=== PATIENT | female | born 1940 | race Caucasian/White ===

== ENCOUNTER 2018-03-08 21:34 | Inpatient (IN) | payer MEDICARE, OTHER ==
[~2018-03-08] VITALS: Ht 160 cm; Wt 96.6 kg
[2018-03-08 23:31] LABS: BASOPHILS % 0.3 % (0.0-1.0); EOSINOPHILS % 0.3 % (0.0-6.0); HEMATOCRIT 34.2 % (34.2-44.1); HEMOGLOBIN 11.5 g/dL (12.0-16.0); LYMPHOCYTES # (AUTO) 0.6 (1.0-3.2); LYMPHOCYTES % 5.3 % (18.0-39.1); MEAN CORPUSCULAR HEMOGLOBIN 30.7 pg (28-32); MEAN CORPUSCULAR HGB CONC 33.6 g/dL (31-35); MEAN CORPUSCULAR VOLUME 91.2 fL (81-99); MONOCYTES # (AUTO) 0.9 (0.2-0.8); NEUTROPHILS # (AUTO) 9.8 (2.1-6.9); NEUTROPHILS % 85.8 % (38.7-80.0); PLATELET COUNT 207 x10e3/uL (140-360); RED BLOOD COUNT 3.75 x10e6/uL (3.6-5.1); RED CELL DISTRIBUTION WIDTH 13.2 % (11.7-14.4)
[2018-03-08 23:39] LABS: CLARITY,URINE CLOUDY (CLEAR); COLOR,URINE YELLOW (YELLOW)
[2018-03-08 23:40] LABS: BILIRUBIN,URINE NEGATIVE (NEGATIVE); KETONES,URINE NEGATIVE (NEGATIVE); LEUKOCYTE ESTERASE ,URINE 1+ (NEGATIVE); NITRITE,URINE NEGATIVE (NEGATIVE); PROTEIN,URINE DIPSTICK NEGATIVE (NEGATIVE); URINE UROBILINOGEN 0.2 mg/dL (0.2 - 1)
[2018-03-08 23:41] LABS: PREGNANCY TEST, URINE NEGATIVE (NEGATIVE)
[2018-03-08 23:47] LABS: WBC,URINE (MAN) >50 /HPF (0-5)
[2018-03-08 23:48] LABS: BACTERIA,URINE MANY /HPF; EPITHELIAL CELLS,URINE FEW /LPF; MUCUS,URINE MODERATE (RARE)
[2018-03-08 23:51] LABS: ALBUMIN 3.4 g/dL (3.5-5.0); ALBUMIN/GLOBULIN RATIO 0.9 (0.8-2.0); ANION GAP 20.8 mmol/L (8-16); CALCIUM 9.4 mg/dL (8.4-10.2); CREATININE, SERUM 2.76 mg/dL (0.57-1.11); POTASSIUM 3.8 mmol/L (3.5-5.1)
[2018-03-09] VITALS (8 sets, daily range): BP systolic 114–147; BP diastolic 55–85
[2018-03-09] MEDS ORDERED: SODIUM CHLORIDE 0.9% 1000ML 1,000 ML IV SCH
[2018-03-09] MEDS ORDERED: SODIUM CHLORIDE 0.9% 1000ML 1,000 ML ONE (00:15)
[2018-03-09] MEDS ORDERED: DIATRIZOATE MEGL/DIATRIZOA SOD 30 ML BTL PO ONE (00:28)
--- NOTE | 2018-03-09 02:26 | Diagnostic Imaging Report ---
EXAM: CT Abdomen and Pelvis WITHOUT contrast INDICATION: Vomiting, diarrhea, left lower quadrant abdominal pain. ^VOMITING DIARRHEA AND LLQ ABD PAIN ^[id number] ^0155 ^N COMPARISON: None. TECHNIQUE: Abdomen and pelvis were scanned utilizing a multidetector helical scanner from the lung base to the pubic symphysis without administration of IV contrast. Absence of intravenous contrast decreases sensitivity for detection of focal lesions and vascular pathology. Coronal and sagittal reformations were obtained. Routine protocol was performed. IV CONTRAST: None ORAL CONTRAST: Gastrografin COMPLICATIONS: None RADIATION DOSE: Total DLP: 828.9 mGy*cm Estimated effective dose: (DLP x 0.015 x size factor) mSv Dose modulation, iterative reconstruction, and/or weight based adjustment of the mA/kV was utilized to reduce the radiation dose to as low as reasonably achievable. FINDINGS: LINES and TUBES: None. LOWER THORAX: 1.9 x 2 cm noncalcified solid pulmonary nodule in the posterior medial left lower lobe. Three vessel diffuse coronary artery calcifications. HEPATOBILIARY: Multiple hepatic cysts measuring up to 5 cm. No biliary ductal dilation. GALLBLADDER: Absent. SPLEEN: No splenomegaly. PANCREAS: No focal masses or ductal dilatation. ADRENALS: Right adrenal 1.1 cm nodule measures 20 Hounsfield units, indeterminate. Left adrenal hyperplasia. KIDNEYS/URETERS: No hydronephrosis. Multiple renal cysts measuring up to 3.3 cm. Additional scattered lesions measure greater than fluid density, for example 1.3 cm in the left interpolar region measuring 64 Hounsfield units (image 39) and 2.2 cm left inferior pole measuring 41 Hounsfield units (image 52), indeterminate. No stones. GI TRACT: Small hiatal hernia. No abnormal distention, wall thickening, or evidence of bowel obstruction. There are diverticula within the colon without evidence of diverticulitis. There are post surgical changes of appendectomy. PELVIC ORGANS/BLADDER: Bilateral hip prostheses with streak and photon starvation artifacts limit evaluation of the pelvis. Hysterectomy. LYMPH NODES: No lymphadenopathy. VESSELS: There is severe atherosclerotic disease in the aorta and major arterial branches. Fusiform infrarenal abdominal aortic aneurysm approximately 3.2 cm above the bifurcation. Aneurysm measures up to approximately 3.7 cm in diameter and 5.1 cm in length. PERITONEUM / RETROPERITONEUM: No free air or fluid. BONES: Bilateral hip prostheses. Severe facet degenerative changes throughout the lumbar spine. Grade 1 anterolisthesis of L4 on L5. Multilevel degenerative disc disease of the thoracolumbar spine. Multilevel posterior disc osteophyte complexes which narrow the spinal canal in the lower thoracic spine. SOFT TISSUES: Small fat-containing umbilical hernia. Gluteal injection granulomas. IMPRESSION: 1. No acute abnormalities. 2. Left lower lobe 2 cm pulmonary nodule. Consider management per Fleischner Society [address] at 3 months, PET/CT, or tissue sampling. 3. Multiple indeterminate renal lesions which may represent complicated cysts, although solid lesion cannot be excluded. Recommend further evaluation with MRI without and with contrast. 4. Indeterminate right adrenal 1.1 cm nodule which can be evaluated at the time of MRI. 5. Abdominal aortic aneurysm measuring 3.7 cm in diameter. 6. Small hiatal hernia. 7. Colonic diverticulosis. Signed by: DR. Christopher Miranda MD on 03/09/2018 2:23 AM
[2018-03-09] MEDS ORDERED: ACETAMINOPHEN 1000 MG/100 ML 100 ML IV ONE (03:24)
[2018-03-09] MEDS ORDERED: ONDANSETRON HCL INJ 2 MG/ML VIAL IV PRN (03:30)
[2018-03-09] MEDS ORDERED: MORPHINE SULFATE 2 MG/ML SYR IV PRN (03:30)
--- OUTSIDE RECORDS SUMMARY | 2018-03-09 04:15 | XMS REPORT ---
Author Author [facility] Address Unknown Phone Unavailable Care Team Providers Care Pharmacy Informatics Specialist Name Role Phone Evan WHELAN Unavailable Unavailable Problems This patient has no known problems. Allergies, Adverse Reactions, Alerts This patient has no known allergies or adverse reactions. Medications This patient has no known medications. Results Test Description Test Time Test Comments Text Results Atomic Results Result Comments CT ABDOMEN/PELVIS WO 2018-03-09 01:50:00 [facility] [address] [address] Patient Name: PEEWEE MCNAIR MR #: [id number] : 1940 Age/Sex: 78/F Req #: [id number] Adm Physician: Ordered by: JENNA WHELAN MD Report #: [id number] Location: ER Room/Bed: Procedure: [id number] CT/CT ABDOMEN/PELVIS WO Exam Date: 03/09/18 Exam Time: 0155 REPORT STATUS: Signed EXAM: CT Abdomen and Pelvis WITHOUT contrast IND ICATION: Vomiting, diarrhea, left lower quadrant abdominal pain. VOMITING DIARRHEA AND LLQ ABD PAIN [id number] COMPARISON: None. TECHNIQUE: Abdomen and pelvis were scanned utilizing a multidetector helical scanner from the lung base to the pubic symphysis without administration of IV contrast. Absence of intravenous contrast decreases sensitivity for detection of focal lesions and vascular pathology. Coronal and sagittal reformations were obtained. Routine protocol was performed. IV CONTRAST: None ORAL CONTRAST: Gastrografin COMPLICATIONS: None RADIATION DOSE: Total DLP: 828.9 mGy*cm Estimated effective dose: (DLP x 0.015 x size factor) mSv Dose modulation, iterative reconstruction, and/or weight based adjustment of the mA/kV was utilized to reduce the radiation dose to as low as reasonably achievable. FINDINGS: LINES and TUBES: None. LOWER THORAX: 1.9 x 2 cm noncalcified solid pulmonary nodule in the posterior medial left lower lobe. Three vessel diffuse coronary artery calcifications. HEPATOBILIARY: Multiple hepatic cysts measuring up to 5 cm. No biliary ductal dilation. GALLBLADDER: Absent. SPLEEN: No splenomegaly. PANCREAS: No focal masses or ductal dilatation. ADRENALS: Right adrenal 1.1 cm nodule measures 20 Hounsfield units, indeterminate. Left adrenal hyperplasia. KIDNEYS/URETERS: No hydronephrosis. Multiple renal cysts measuring up to 3.3 cm. Additional scattered lesions measure greater than fluid density, for example 1.3 cm in the left interpolar region measuring 64 Hounsfield units (image 39) and 2.2 cm left inferior pole measuring 41 Hounsfield units (image 52), indeterminate. No stones. GI TRACT: Small hiatal hernia. No abnormal distention, wall thickening, or evidence of bowel obstruction. There are diverticula within the colon without evidence of diverticulitis. There are post surgical changes of appendectomy. PELVIC ORGANS/BLADDER: Bilateral hip prostheses with streak and photon starvation artifacts limit evaluation of the pelvis. Hysterectomy. LYMPH NODES: No lymphadenopathy. VESSELS: There is severe atherosclerotic disease in the aorta and major arterial branches. Fusiform infrarenal abdominal aortic aneurysm approximately 3.2 cm above the bifurcation. Aneurysm measures up to approximately 3.7 cm in diameter and 5.1 cm in length. PERITONEUM / RETROPERITONEUM: No free air or fluid. BONES: Bilateral hip prostheses. Severe facet degenerative changes throughout the lumbar spine. Grade 1 anterolisthesis of L4 on L5. Multilevel degenerative disc disease of the thoracolumbar spine. Multilevel posterior disc osteophyte complexes which narrow the spinal canal in the lower thoracic spine. SOFT TISSUES: Small fat-containing umbilical hernia. Gluteal injection granulomas. IMPRESSION: 1. No acute abnormalities. 2. Left lower lobe 2 cm pulmonary nodule. Consider management per Fleischner Society [address] at 3 months, PET/CT, or tissue sampling. 3. Multiple indeterminate renal lesions which may represent complicated cysts, although solid lesion cannot be excluded. Recommend further evaluation with MRI without and with contrast. 4. Indeterminate right adrenal 1.1 cm nodule which can be evaluated at the time of MRI. 5. Abdominal aortic aneurysm measuring 3.7 cm in diameter. 6. Small hiatal hernia. 7. Colonic diverticulosis. Signed by: DR. Christopher Walden MD on 03/09/2018 2:23 AM Dictated By: CHRISTOPHER WALDEN MD 2 Transcribed By: GORDY on 03/09/18222 COPY TO: JENNA WHELAN MD
--- OUTSIDE RECORDS SUMMARY | 2018-03-09 04:15 | XMS REPORT ---
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 Completed 05/21/2016 cephalexin 500 mg capsule Completed 05/21/2016 clopidogrel 75 mg tablet Active Not available Co Q-10 200 mg capsule QD Active Not available Farxiga 10 mg tablet Take 1 tablet every day by oral route. Active Not available fluconazole 150 mg tablet Completed 05/21/2016 FreeStyle Lancets 28 gauge Take 1 each 3 times a week by miscell. route as directed. Active Not available furosemide 20 mg tablet Active Not available Jardiance 10 mg tablet Take 1 tablet every day by oral route. Active Not available lisinopril 2.5 mg tablet Completed 08/14/2016 lisinopril 20 mg-hydrochlorothiazide 12.5 mg tablet Take 1 tablet every day by oral route. Completed 02/29/2016 lisinopril 5 mg tablet Active Not available Longs Adult Low Strength ASA 81 mg tablet,delayed release Take 1 tablet every day by oral route. Active Not available Macrobid 100 mg capsule Take 1 capsule every 12 hours by oral route. Completed 03/08/2016 metformin 1,000 mg tablet Take 1 tablet twice a day by oral route. Active Not available metformin 500 mg tablet Active Not available OneTouch Delica Lancets 33 gauge Active Not available OneTouch Ultra Blue Test Strip Active Not available OneTouch Ultra2 kit Completed 06/04/2017 pravastatin 40 mg tablet Completed 02/29/2016 pravastatin 80 mg tablet Completed 02/29/2016 sulfamethoxazole 800 mg-trimethoprim 160 mg tablet Completed 03/08/2016 Zostavax (PF) 19,400 unit/0.65 mL subcutaneous suspension Completed 04/27/2016 Problems Name Status Onset Date Source Type 2 Diabetes Mellitus without Complication Unknown 12/27/2015 Mixed Hyperlipidemia Active 12/27/2015 Body Mass Index 30+ - Obesity Active 12/27/2015 Tobacco User Active 12/27/2015 Benign Essential Hypertension Active 12/27/2015 Coronary Arteriosclerosis in [place] Artery Active 03/15/2016 Blood in Urine Active 03/15/2016 Type 2 Diabetes Mellitus Active 04/18/2016 Angina Pectoris Active 04/18/2016 Congestive Heart Failure Active 04/18/2016 History of Tobacco Use Active 04/18/2016 Atherosclerosis of Arteries of the Extremities Active 04/27/2016 Morbid Obesity Active 08/14/2016 Chronic Diastolic Heart Failure Active 08/14/2016 Type II Diabetes Mellitus Uncontrolled Active 04/10/2017 Acute Urinary Tract Infection Unknown Procedures Date Name Performed by 03/04/2016 Angioplasty Notes: Bilateral Femoral Artery Stent Placement Information not available Other Information not available Coronary Artery Angio S&i Notes: Stent placed in posterior heart, pt unsure of vessel. Information not available Back Surgery Notes: Lumbar and Thoracic. Unknown procedures. Information not available Hip Replacement Notes: Bilaterally Information not available Partial Hysterectomy Information not available 12/27/2015 Electrocardiogram [facility] [address] [place] [address] ([address]) 03/04/2010 Bone Density Study Information not available Notes: Pituitary Tumor Excised, Acromegaly Lab Results Date Name Specimen Result Interpretation Description Value Range Status Address 02/15/2017 CBC W/ Auto Diff Normal White Blood Cell Count 7.1 thousand/uL 3.8-10.8 thousand/uL [facility] Laboratory: [address] Normal Red Blood Cell Count 4.15 million/uL 3.80-5.10 million/uL [facility] Laboratory: [address] Normal Hemoglobin 12.6 g/dL 11.7-15.5 g/dL [facility] Laboratory: [address] Normal Hematocrit 38.6 % 35.0-45.0 % Final [facility] Laboratory: [address] Normal Mcv 93.0 fL 80.0-100.0 fL Final [facility] Laboratory: [address] Normal Mch 30.4 pg 27.0-33.0 pg Final [facility] Laboratory: [address] Normal Mchc 32.6 g/dL 32.0-36.0 g/dL Final [facility] Laboratory: [address] Normal Rdw 12.6 % 11.0-15.0 % Final [facility] Laboratory: [address] Normal Platelet Count 207 thousand/uL 140-400 thousand/uL Final [facility] Laboratory: [address] Normal Mpv 10.0 fL 7.5-12.5 fL Final [facility] Laboratory: [address] Normal Absolute Neutrophils 4743 cells/uL 5006-5304 cells/uL Final [facility] Laboratory: [address] Normal Absolute Lymphocytes 1576 cells/uL 850-3900 cells/uL Final [facility] Laboratory: [address] Normal Absolute Monocytes 440 cells/uL 200-950 cells/uL Final [facility] Laboratory: [address] [place] Normal Absolute Eosinophils 298 cells/uL 15-500 cells/uL Final [facility] Laboratory: [address] Normal Absolute Basophils 43 cells/uL 0-200 cells/uL Final [facility] Laboratory: [address] Normal Neutrophils 66.8 % Final [facility] Laboratory: [address] Normal Lymphocytes 22.2 % Final [facility] Laboratory: [address] Normal Monocytes 6.2 % Final [facility] Laboratory: [address] [place] Normal Eosinophils 4.2 % Final [facility] Laboratory: [address] [place] Normal Basophils 0.6 % Final [facility] Laboratory: [address]aur 02/15/2017 HbA1C (Hemoglobin a1C), Blood High Hemoglobin a1C 8.5 % of total HGB <5.7 % of total HGB Final [facility] Laboratory: [address] Castañeda [place] [address] [place] EAG (mg/dL) 197 (calc) Final [facility] Laboratory: [address] [place] EAG (mmol/L) 10.9 (calc) Final [facility]: [facility] [facility] 02/15/2017 CMP, Serum or Plasma Alt 37 U/L 0-55 U/L Final [facility] Laboratory: [address] Castañeda [address] Ast 24 U/L 5-34 U/L Final [facility] Laboratory: [address] Castañeda [address] Bun 15.0 mg/dL 9.8-20.1 mg/dL Final [facility] Laboratory: [address] Castañeda [address] Alk Phos 85 unit/L 40-150 unit/L Final [facility] Laboratory: [address] Castañeda [address] High Glucose 256 mg/dL 70-99 mg/dL Final [facility] Laboratory: [address] Castañeda [address] Albumin 3.8 g/dL 3.5-5.0 g/dL Final [facility] Laboratory: [address] Castañeda [address] Creatinine 0.93 mg/dL 0.57-1.11 mg/dL Final [facility] Laboratory: [address] Castañeda [address] Low eGFR Non- 58 mL/min/1.73m2 >60 mL/min/1.73m2 Final [facility] Laboratory: [address] Castañeda [address] Total Bilirubin 0.7 mg/dL 0.2-1.2 mg/dL Final [facility] Laboratory: [address] Castañeda [address] eGFR - >60 mL/min/1.73m2 >60 mL/min/1.73m2 Final [facility] Laboratory: [address] Castañeda [address] Sodium 137 mEq/L 136-145 mEq/L Final [facility] Laboratory: [address] Castañeda [address] Potassium 4.3 mEq/L 3.5-5.1 mEq/L Final [facility] Laboratory: [address] Castañeda [address] Chloride 104 mmol/L 98-107 mmol/L Final [facility] Laboratory: [address] Castañeda [address] Total Protein 6.7 g/dL 6.4-8.3 g/dL Final [facility] Laboratory: [address]el [address] Calcium 9.8 mg/dL 8.4-10.2 mg/dL Final [facility] Laboratory: [address] Co2 26.9 mmol/L 23.0-31.0 mmol/L Final [facility] Laboratory: [address] Anion Gap 6 calc Final [facility] Laboratory: [address] hansel [address] 02/15/2017 Lipid Panel, Serum Low Hdl 34 mg/dL 40-60 mg/dL Final [facility] Laboratory: [address] High Triglyceride 188 mg/dL 0-149 mg/dL Final [facility] Laboratory: [address] VLDL Calc. 38 mg/dL Final [facility] Laboratory: [address] cholesterol/HDL Ratio 4.1 mg/dL Final [facility] Laboratory: [address] h[address]el [address] non-HDL Cholesterol Calc. 104 mg/dL 0-160 mg/dL Final [facility] Laboratory: [address]el [address] Cholesterol 138 mg/dL 0-199 mg/dL Final [facility] Laboratory: [address] LDL Calc. 66 mg/dL 0-130 mg/dL Final [facility] Laboratory: [address] 02/15/2017 TSH, Serum or Plasma Tsh 1.903 uIU/mL 0.350-4.940 uIU/mL Final [facility] Laboratory: [address] 11/15/2016 CMP, Serum or Plasma Alt 32 U/L 0-55 U/L Final [facility] Laboratory: [address] Ast 19 U/L 5-34 U/L Final [facility] Laboratory: [address] Bun 15.1 mg/dL 9.8-20.1 mg/dL Final [facility] Laboratory: [address] Alk Phos 82 unit/L 40-150 unit/L Final [facility] Laboratory: [address] hansel [address] High Glucose 218 mg/dL 70-99 mg/dL Final [facility] Laboratory: [address] Castañeda [facility] Albumin 3.8 g/dL 3.5-5.0 g/dL Final [facility] Laboratory: [address] [place], [place] Creatinine 0.84 mg/dL 0.57-1.11 mg/dL Final [facility] Laboratory: [address] Castañeda [address] eGFR Non- >60 mL/min/1.73m2 >60 mL/min/1.73m2 Final [facility] Laboratory: [address] Castañeda [address] Total Bilirubin 0.7 mg/dL 0.2-1.2 mg/dL Final [facility] Laboratory: [address] Castañeda [address] eGFR - >60 mL/min/1.73m2 >60 mL/min/1.73m2 Final [facility] Laboratory: [address] Krishnamurthy [address] [place] [address] Sodium 139 mEq/L 136-145 mEq/L Final [facility] Laboratory: [address] Castañeda [address] Potassium 4.6 mEq/L 3.5-5.1 mEq/L Final [facility] Laboratory: [address] Castañeda [address] Chloride 105 mmol/L 98-107 mmol/L Final [facility] Laboratory: [address] Castañeda [address] Total Protein 6.8 g/dL 6.4-8.3 g/dL Final [facility] Laboratory: [address] Krishnamurthy [address] [place] [address] Calcium 9.6 mg/dL 8.4-10.2 mg/dL Final [facility] Laboratory: [address] Castañeda [place] [address], [place] Co2 24.9 mmol/L 23.0-31.0 mmol/L Final [facility] Laboratory: [address] Castañeda [address] Anion Gap 9 calc Final [facility] Laboratory: [address] [facility] 11/15/2016 Lipid Panel, Serum Hdl 40 mg/dL 40-60 mg/dL Final [facility] Laboratory: [address] Krishnamurthy [facility], [place] Triglyceride 136 mg/dL 0-149 mg/dL Final [facility] Laboratory: [address] Castañeda [address] VLDL Calc. 27 mg/dL Final [facility] Laboratory: [address] cholesterol/HDL Ratio 4 mg/dL Final [facility] Laboratory: [address] non-HDL Cholesterol Calc. 102 mg/dL 0-160 mg/dL Final [facility] Laboratory: [address] Cholesterol 142 mg/dL 0-199 mg/dL Final [facility] Laboratory: [address] LDL Calc. 75 mg/dL 0-130 mg/dL Final [facility] Laboratory: [address] 11/15/2016 HbA1C (Hemoglobin a1C), Blood High A1C W/eag 7.0 % 1.0-5.7 % Final [facility] Laboratory: [address] Average Blood Glucose 154 mg/dL Final [facility] Laboratory: [address] 08/03/2016 Lipid Panel, Serum Normal Cholesterol, Total 127 mg/dL 125- 200 mg/dL Final [facility] Laboratory: [address] Low HDL Cholesterol 43 mg/dL > or=46 mg/dL Final [facility] Laboratory: [address] Normal Triglycerides 141 mg/dL <150 mg/dL Final [facility] Laboratory: [address] Normal LDL-cholesterol 56 mg/dL (calc) <130 mg/dL (calc) Final [facility] Laboratory: [address] Normal Chol/hdlc Ratio 3.0 (calc) < or=5.0 (calc) Final [facility] Laboratory: [address] Normal Non HDL Cholesterol 84 mg/dL (calc) Final [facility] Laboratory: [address] 08/03/2016 CMP, Serum or Plasma High Glucose 170 mg/dL 65-99 mg/dL Final [facility] Laboratory: [address] Normal Urea Nitrogen (BUN) 13 mg/dL 7-25 mg/dL Final [facility] Laboratory: [address] Normal Creatinine 0.80 mg/dL 0.60-0.93 mg/dL Final [facility] Laboratory: [address] Normal eGFR Non-afr. Estonian 72 mL/min/1.73m2 > or=60 mL/min/1.73m2 Final [facility] Laboratory: [address] Krishnamurthy [address] [place] [address] Normal eGFR 83 mL/min/1.73m2 > or=60 mL/min/1.73m2 Final [facility] Laboratory: [address] [facility] BUN/creatinine Ratio not applicable (calc) 6-22 (calc) Final [facility] Laboratory: [address] [facility] Normal Sodium 139 mmol/L 135-146 mmol/L Final [facility] Laboratory: [address] Krishnamurthy [address] [place] [address] Normal Potassium 4.8 mmol/L 3.5-5.3 mmol/L Final [facility] Laboratory: [address] Castañeda [facility] Normal Chloride 105 mmol/L 98-110 mmol/L Final [facility] Laboratory: [address] Krishnamurthy [address] [place] [address] Normal Carbon Dioxide 24 mmol/L 20-31 mmol/L Final [facility] Laboratory: [address] [facility] Normal Calcium 9.8 mg/dL 8.6-10.4 mg/dL Final [facility] Laboratory: [address] Krishnamurthy [address] [place] [address] Normal Protein, Total 6.5 g/dL 6.1-8.1 g/dL Final [facility] Laboratory: [address] Castañeda [address] Normal Albumin 4.3 g/dL 3.6-5.1 g/dL Final [facility] Laboratory: [address] Krishnamurthy [address] [place] [address] Normal Globulin 2.2 g/dL (calc) 1.9-3.7 g/dL (calc) Final [facility] Laboratory: [address] Castañeda [address] Normal Albumin/globulin Ratio 2.0 (calc) 1.0-2.5 (calc) Final [facility] Laboratory: [address] Castañeda [address] Normal Bilirubin, Total 0.6 mg/dL 0.2-1.2 mg/dL Final [facility] Laboratory: [address] [facility] Normal Alkaline Phosphatase 80 U/L 33-130 U/L Final [facility] Laboratory: [address] [facility] Normal Ast 15 U/L 10-35 U/L Final [facility] Laboratory: [address] [facility] Normal Alt 22 U/L 6-29 U/L Final [facility] Laboratory: [address] Krishnamurthy [address] [place] [address] 08/03/2016 HbA1C (Hemoglobin a1C), Blood High A1C W/eag 7.0 % 1.0-5.7 % Final [facility] Laboratory: [address] [place] [address], [place] Average Blood Glucose 154 mg/dL Final [facility] Laboratory: [address] Krishnamurthy [address] [place] [address] 04/27/2016 Urinalysis Complete, Reflex Culture Normal Color yellow yellow Final [facility] Laboratory: [address] [place] [address], [place] Normal Appearance clear clear Final [facility] Laboratory: [address] [place] [address], [place] Normal Specific Wyatt 1.009 1.001-1.035 Final [facility] Laboratory: [address] Normal Ph 5.5 5.0-8.0 Final [facility] Laboratory: [address] [place] [address], [place] Normal Glucose negative negative Final [facility] Laboratory: [address] Normal Bilirubin negative negative Final [facility] Laboratory: [address] h[address] Normal Ketones negative negative Final [facility] Laboratory: [address] [place] [address], [place] Normal Occult Blood negative negative Final [facility] Laboratory: [address] Normal Protein negative negative Final [facility] Laboratory: [address] ABNORMAL Nitrite positive negative Final [facility] Laboratory: [address] ABNORMAL Leukocyte Esterase 1+ negative Final [facility] Laboratory: [address] Normal Wbc 0-5 /hpf < or=5 /hpf Final [facility] Laboratory: [address] Normal Rbc none seen /hpf < or=2 /hpf Final [facility] Laboratory: [address] Squamous Epithelial Cells 0-5 /hpf < or=5 /hpf Final [facility] Laboratory: [address] ABNORMAL Bacteria few /hpf none seen /hpf Final [facility] Laboratory: [address] Normal Hyaline Cast none seen /lpf none seen /lpf Final [facility] Laboratory: [address] Reflexive Urine Culture culture indicated - results to follow Final [facility] Laboratory: [address]87 [address] Castañeda [address] 04/27/2016 Culture, Urine ABNORMAL Culture, Urine, Routine Final [facility] Laboratory: [address]055 [address] [facility] 04/18/2016 CMP, Serum or Plasma High Glucose 108 mg/dL 65-99 mg/dL Final [facility] Laboratory: [address] Normal Urea Nitrogen (BUN) 21 mg/dL 7-25 mg/dL Final [facility] Laboratory: 55 [address] Normal Creatinine 0.93 mg/dL 0.60-0.93 mg/dL Final [facility] Laboratory: 55 [address] Fwh[address]el [address] Normal eGFR Non-afr. Estonian 60 mL/min/1.73m2 > or=60 mL/min/1.73m2 Final [facility] Laboratory: 55 [address] Normal eGFR 69 mL/min/1.73m2 > or=60 mL/min/1.73m2 Final [facility] Laboratory: [facility] [address] BUN/creatinine Ratio not applicable (calc) 6-22 (calc) Final [facility] Laboratory: [address] Normal Sodium 138 mmol/L 135-146 mmol/L Final [facility] Laboratory: [address] Normal Potassium 4.9 mmol/L 3.5-5.3 mmol/L Final [facility] Laboratory: [address] Normal Chloride 101 mmol/L 98-110 mmol/L Final [facility] Laboratory: 55 [address] Normal Carbon Dioxide 27 mmol/L 20-31 mmol/L Final [facility] Laboratory: [address] Normal Calcium 10.1 mg/dL 8.6-10.4 mg/dL Final [facility] Laboratory: [address] Normal Protein, Total 7.2 g/dL 6.1-8.1 g/dL Final [facility] Laboratory: [address] Normal Albumin 4.3 g/dL 3.6-5.1 g/dL Final [facility] Laboratory: 55 [address] Normal Globulin 2.9 g/dL (calc) 1.9-3.7 g/dL (calc) Final [facility] Laboratory: [address] [place] Normal Albumin/globulin Ratio 1.5 (calc) 1.0-2.5 (calc) Final [facility] Laboratory: 9055 [address] [facility] Normal Bilirubin, Total 0.7 mg/dL 0.2-1.2 mg/dL Final [facility] Laboratory: 9055 [address] [facility] Normal Alkaline Phosphatase 69 U/L 33-130 U/L Final [facility] Laboratory: [address] [facility] Normal Ast 16 U/L 10-35 U/L Final [facility] Laboratory: [address] Krishnamurthy [address] [place] [address] Normal Alt 19 U/L 6-29 U/L Final [facility] Laboratory: [address]055 [address] [facility] 04/18/2016 Lipid Panel, Serum Normal Cholesterol, Total 143 mg/dL 125- 200 mg/dL Final [facility] Laboratory: 9055 [address] [facility] Low HDL Cholesterol 36 mg/dL > or=46 mg/dL Final [facility] Laboratory: [address] [facility] High Triglycerides 154 mg/dL <150 mg/dL Final [facility] Laboratory: [address] Krishnamurthy [address] [place] [address] Normal LDL-cholesterol 76 mg/dL (calc) <130 mg/dL (calc) Final [facility] Laboratory: [address] Krishnamurthy [address] [place] [address] Normal Chol/hdlc Ratio 4.0 (calc) < or=5.0 (calc) Final [facility] Laboratory: [address] [facility] Normal Non HDL Cholesterol 107 mg/dL (calc) Final [facility] Laboratory: 9055 [address] [facility] 04/18/2016 Urinalysis Complete, Reflex Culture Normal Color yellow yellow Final [facility] Laboratory: [address] Castañeda [facility] Normal Appearance clear clear Final [facility] [facility]: [facility] Specific [place] 1.005 1.001-1.035 Final [facility] Laboratory[facility] Ph 5.5 5.0-8.0 Final [facility] Laboratory: [facility] Glucose negative negative Final [facility] Laboratory: 9055 Flakita Castañeda [place] [address] Normal Bilirubin negative negative Final [facility] Laboratory: 9005 Fl[address] Hawk, [place] Normal Ketones negative negative Final [facility] Laboratory: 9050 Fl[address] Hawk, [place] ABNORMAL Occult Blood 2+ negative Final [facility] Laboratory: 9036 Flak[address] Hawk, [place] Normal Protein negative negative Final [facility] Laboratory: 9061 Flakita Krishnamurthy [facility], [place] ABNORMAL Nitrite positive negative Final [facility] Laboratory: 9048 Flakita Krishnamurthy [facility], [place] ABNORMAL Leukocyte Esterase 1+ negative Final [facility] Laboratory: 9033 Flakita Castañeda [place] [address], [place] ABNORMAL Wbc 6-10 /hpf < or=5 /hpf Final [facility] Laboratory: 9040 Flakita Krishnamurthy [facility], [place] ABNORMAL Rbc 3-10 /hpf < or=2 /hpf Final [facility] Laboratory: 9015 Flakita Krishnamurthy [address] [place] [address] Squamous Epithelial Cells 0-5 /hpf < or=5 /hpf Final [facility] Laboratory: 9070 Flakita Castañeda [address] ABNORMAL Bacteria moderate /hpf none seen /hpf Final [facility] Laboratory: 9060 Flakita Krishnamurthy [address] [place] [address] Normal Hyaline Cast none seen /lpf none seen /lpf Final [facility] Laboratory: 9014 Flakita Castañeda [address] Reflexive Urine Culture culture indicated - results to follow Final [facility] Laboratory: 9059 [address] Hawk, [place] 04/18/2016 Culture, Urine ABNORMAL Culture, Urine, Routine Final [facility] Laboratory[facility]2016 Urinalysis Complete, Reflex Culture Normal Color yellow yellow Final [facility] Laboratory: 9079 Flakita Krishnamurthy [address] [place] [address] Normal Appearance clear clear Final [facility] Laboratory: 9042 Flakita Krishnamurthy [facility], [place] Normal Specific Wyatt 1.004 1.001-1.035 Final [facility] Laboratory: 9067 Flakita Castañeda [place] [address], [place] Normal Ph 5.5 5.0-8.0 Final [facility] Laboratory: 9060 [address] Hawk, [place] Normal Glucose negative negative Final [facility] Laboratory: 9000 [address] Hawk, [place] Normal Bilirubin negative negative Final [facility] Laboratory: 9056 Flakita Castañeda [address] Normal Ketones negative negative Final [facility] Laboratory: 9054 Flakita Castañeda [place] [address], [place] Normal Occult Blood negative negative Final [facility] Laboratory: 9088 Flakita Castañeda [place] [address], [place] Normal Protein negative negative Final [facility] Laboratory: 9050 Flakita Castañeda [place] [address], [place] Normal Nitrite negative negative Final [facility] Laboratory: 9084 Flakita Castañeda [place] [address], [place] Normal Leukocyte Esterase negative negative Final [facility] Laboratory: 9023 Flakita Castañeda [place] [address], [place] Normal Wbc none seen /hpf < or=5 /hpf Final [facility] Laboratory: 9093 Flakita hansel [address] Normal Rbc none seen /hpf < or=2 /hpf Final [facility] Laboratory: 9069 Flakita hansel [place] [address], [place] Squamous Epithelial Cells 0-5 /hpf < or=5 /hpf Final [facility] Laboratory: 90 Flakita hansel [address] Normal Bacteria none seen /hpf none seen /hpf Final [facility] Laboratory: 9016 Flakita Castañeda [address] Normal Hyaline Cast none seen /lpf none seen /lpf Final [facility] Laboratory: 9099 Flakita hansel [address] Reflexive Urine Culture no culture indicated Final [facility] Laboratory: 9037 Flakita Castañeda [address] 03/15/2016 Culture, Urine ABNORMAL Culture, Urine, Routine Final [facility] Laboratory: 9087 Flakita Castañeda [address] 03/01/2016 Urinalysis Complete, Reflex Culture Urine Normal Color dark yellow yellow Final [facility] Laboratory: 9072 Flakita Maddy [address] Urine ABNORMAL Appearance cloudy clear Final [facility] Laboratory: 90 Flakita Castañeda [address] Urine Normal Specific [place] 1.009 1.001-1.035 Final [facility] Laboratory: 9050 Flakita Maddy [address] Urine Normal Ph 5.5 5.0-8.0 Final [facility] Laboratory: 9038 Flakita Castañeda [place] [address], [place] Urine Normal Glucose negative negative Final [facility] Laboratory: 9088 Flakita hansel [address] Urine Normal Bilirubin negative negative Final [facility] Laboratory: 9069 Flakita Maddy [place] [address], [place] Urine Normal Ketones negative negative Final [facility] Laboratory: 9079 Flakita Maddy [place] [address], [place] Urine ABNORMAL Occult Blood trace negative Final [facility] Laboratory: 9053 Flakita Castañeda [place] [address], [place] Urine Normal Protein negative negative Final [facility] Laboratory: 9013 Flakita hansel [place] [address], [place] Urine ABNORMAL Nitrite positive negative Final [facility] Laboratory: 9012 Flakita Krishnamurthy [address] [place] [address] Urine ABNORMAL Leukocyte Esterase 3+ negative Final [facility] Laboratory: 9011 Flakita Krishnamurthy [address] [place] [address] Urine ABNORMAL Wbc 40-60 /hpf < or=5 /hpf Final [facility] Laboratory: 9097 Flakita Krishnamurthy [address] [place] [address] Urine Normal Rbc 0-2 /hpf < or=2 /hpf Final [facility] Laboratory: 9012 Flakita Castañeda [address] Urine Squamous Epithelial Cells 0-5 /hpf < or=5 /hpf Final [facility] Laboratory: 9098 Flakita Castañeda [address] Urine ABNORMAL Bacteria many /hpf none seen /hpf Final [facility] Laboratory: 9089 Flakita hansel [address] Urine Normal Hyaline Cast none seen /lpf none seen /lpf Final [facility] Laboratory: 9013 Flakita Castañeda [address] Urine Reflexive Urine Culture culture indicated - results to follow Final [facility] Laboratory: 9003 Flakita Castañeda [address] 03/01/2016 Culture, Urine ABNORMAL Culture, Urine, Routine Final [facility] Laboratory: 9099 Flakita Krishnamurthy [address] [place] [address] 02/29/2016 Urinalysis Complete, Reflex Culture Normal Color yellow yellow Final [facility] Laboratory: 9006 Flakita Castañeda [address] ABNORMAL Appearance cloudy clear Final [facility] Laboratory: 9078 Flakita Castañeda [address] Normal Specific [place] 1.004 1.001-1.035 Final [facility] Laboratory: 9069 Flakita Krishnamurthy [address] [place] [address] Normal Ph 6.0 5.0-8.0 Final [facility] Laboratory: 9033 Flakita Castañeda [address] Normal Glucose negative negative Final [facility] Laboratory: 9079 Flakita Castañeda [address] Normal Bilirubin negative negative Final [facility] Laboratory: 9065 Flakita Castañeda [address] Normal Ketones negative negative Final [facility] Laboratory: 9081 Flakita Krishnamurthy [address] [place] [address] ABNORMAL Occult Blood 2+ negative Final [facility] Laboratory: 9086 Flakita Castañeda [place] [address], [place] Normal Protein negative negative Final [facility] Laboratory: 90 Flakita Castañeda [place] [address], [place] Normal Nitrite negative negative Final [facility] Laboratory: 9006 Flakita Castañeda [place] [address], [place] ABNORMAL Leukocyte Esterase 3+ negative Final [facility] Laboratory: 9014 Flakita Castañeda [address] ABNORMAL Wbc 10-20 /hpf < or=5 /hpf Final [facility] Laboratory: 9098 Flakita hansel [address] Normal Rbc 0-2 /hpf < or=2 /hpf Final [facility] Laboratory: 9055 Flakita hansel [address] Squamous Epithelial Cells 0-5 /hpf < or=5 /hpf Final [facility] Laboratory: 90 Flakita hansel [address] ABNORMAL Bacteria few /hpf none seen /hpf Final [facility] Laboratory: [address] Normal Hyaline Cast none seen /lpf none seen /lpf Final [facility] Laboratory: [facility] Flakita hansel [address] Reflexive Urine Culture culture indicated - results to follow Final [facility] Laboratory: 9068 Flakita hansel [address] 02/29/2016 Culture, Urine ABNORMAL Culture, Urine, Routine Final [facility] Laboratory: 22 Flakita hansel [address] 12/27/2015 CMP, Serum or Plasma High Glucose 136 mg/dL 65-99 mg/dL Final [facility] Laboratory: 9097 Flakita hansel [address] Normal Urea Nitrogen (BUN) 15 mg/dL 7-25 mg/dL Final [facility] Laboratory: [facility] Flakita hansel [address] Normal Creatinine 0.86 mg/dL 0.60-0.93 mg/dL Final [facility] Laboratory: 90 Flakita hansel [address] Normal eGFR Non-afr. Estonian 66 mL/min/1.73m2 > or=60 mL/min/1.73m2 Final [facility] Laboratory: [facility] Flakita hansel [address] Normal eGFR 77 mL/min/1.73m2 > or=60 mL/min/1.73m2 Final [facility] Laboratory: 90 Flakita Fwhansel [address] BUN/creatinine Ratio not applicable (calc) 6-22 (calc) Final [facility] Laboratory: 9055 Flakita hansel [address] Normal Sodium 141 mmol/L 135-146 mmol/L Final [facility] Laboratory: 55 Flakita hansel [address] Normal Potassium 4.4 mmol/L 3.5-5.3 mmol/L Final [facility] Laboratory: 90 Flakita Fwhansel [address] Normal Chloride 105 mmol/L 98-110 mmol/L Final [facility] Laboratory: 9055 Flakita Castañeda [address] Normal Carbon Dioxide 27 mmol/L 20-31 mmol/L Final [facility] Laboratory: 9055 Flakita hansel [address] Normal Calcium 10.0 mg/dL 8.6-10.4 mg/dL Final [facility] Laboratory: 9055 Flakita hansel [address] Normal Protein, Total 7.3 g/dL 6.1-8.1 g/dL Final [facility] Laboratory: 9055 Flakita hansel [address] Normal Albumin 4.3 g/dL 3.6-5.1 g/dL Final [facility] Laboratory: 9055 Flakita hansel [address] Normal Globulin 3.0 g/dL (calc) 1.9-3.7 g/dL (calc) Final [facility] Laboratory: 9055 Flakita hansel [address] Normal Albumin/globulin Ratio 1.4 (calc) 1.0-2.5 (calc) Final [facility] Laboratory: 9055 Flakita hansel [address] Normal Bilirubin, Total 0.6 mg/dL 0.2-1.2 mg/dL Final [facility] Laboratory: 9055 Flakita hansel [address] Normal Alkaline Phosphatase 79 U/L 33-130 U/L Final [facility] Laboratory: 9055 Flakita hansel [address] Normal Ast 15 U/L 10-35 U/L Final [facility] Laboratory: 9055 Flakita hansel [address] Normal Alt 16 U/L 6-29 U/L Final [facility] Laboratory: 9055 Flakita hansel [address] 12/27/2015 Lipid Panel, Serum Normal Cholesterol, Total 200 mg/dL 125- 200 mg/dL Final [facility] Laboratory: 9055 Flakita hansel [address] Low HDL Cholesterol 41 mg/dL > or=46 mg/dL Final [facility] Laboratory: [address] Normal Triglycerides 147 mg/dL <150 mg/dL Final [facility] Laboratory: 9055 Flakita hansel [address] High LDL-cholesterol 130 mg/dL (calc) <130 mg/dL (calc) Final [facility] Laboratory: 9055 Flakita hansel [address] Normal Chol/hdlc Ratio 4.9 (calc) < or=5.0 (calc) Final [facility] Laboratory: 9055 Carter Kaur Normal Non HDL Cholesterol 159 mg/dL (calc) Final [facility] Laboratory: 9055 Carter Kaur 12/27/2015 CBC W/ Auto Diff Normal White Blood Cell Count 8.9 thousand/uL 3.8-10.8 thousand/uL Final [facility] Laboratory: 9069 Flakita Hawk [place] Normal Red Blood Cell Count 4.72 million/uL 3.80-5.10 million/uL Final [facility] Laboratory: 9055 Flakita Hawk [place] Normal Hemoglobin 14.8 g/dL 11.7-15.5 g/dL Final [facility] Laboratory: 9055 Flakita Hawk [place] High Hematocrit 45.5 % 35.0-45.0 % Final [facility] Laboratory: 9055 Flak[address] Hawk [place] Normal Mcv 96.4 fL 80.0-100.0 fL Final [facility] Laboratory: 9052 Flakita Hawk [place] Normal Mch 31.4 pg 27.0-33.0 pg Final [facility] Laboratory: 9027 Flakita Hawk [place] Normal Mchc 32.5 g/dL 32.0-36.0 g/dL Final [facility] Laboratory: 9055 Flakita Hawk [place] Normal Rdw 13.9 % 11.0-15.0 % Final [facility] Laboratory: 9084 Flakita Hawk [place] Normal Platelet Count 208 thousand/uL 140-400 thousand/uL Final [facility] Laboratory: 9010 Flakita Hawk [place] Normal Mpv 8.7 fL 7.5-11.5 fL Final [facility] Laboratory: 9059 Flakita Hawk [place] Normal Absolute Neutrophils 5910 cells/uL 4135-8211 cells/uL Final [facility] Laboratory: 9055 Flakita Hawk [place] Normal Absolute Lymphocytes 2278 cells/uL 850-3900 cells/uL Final [facility] Laboratory: 9021 Flakita Hawk [place] Normal Absolute Monocytes 374 cells/uL 200-950 cells/uL Final [facility] Laboratory: 9015 Flakita Hawk [place] Normal Absolute Eosinophils 294 cells/uL 15-500 cells/uL Final [facility] Laboratory: 9001 Flakita Hawk [place] Normal Absolute Basophils 45 cells/uL 0-200 cells/uL Final [facility] Laboratory: [address] Normal Neutrophils 66.4 % Final [facility] Laboratory: [address] Normal Lymphocytes 25.6 % Final [facility] Laboratory: [address] Normal Monocytes 4.2 % Final [facility] Laboratory: [address] Normal Eosinophils 3.3 % Final [facility] Laboratory: [address] Normal Basophils 0.5 % Final [facility] Laboratory: [address] 12/27/2015 Hepatitis B Surface Ab, Quantitative, Serum Low Hepatitis B Surface Ab Immunity, Qn <5 mIU/mL > or=10 mIU/mL Final [facility] Laboratory: [address] 12/27/2015 HbA1C (Hemoglobin a1C), Blood High Hemoglobin a1C 6.2 % of total HGB <5.7 % of total HGB Final [facility] Laboratory: [address] EAG (mg/dL) 131 (calc) Final [facility] Laboratory: [address] EAG (mmol/L) 7.3 (calc) Final [facility] Laboratory: [address] 01/04/2015 Lipid Panel, Serum No observation recorded. [facility] [address] [facility] 07/07/2014 Lipid Panel, Serum No observation recorded. [facility] [facility] [place] Urinalysis, Dipstick Color Color light yellow [facility]: [address], [place] Color Appearance clear [facility]: [address], [place] Color Glucose negative [facility]: [address], [place] Color Bilirubin negative [facility]: [address], [place] Color Ketones negative [facility]: [address], [place] Color Specific [place] 1.025 [facility]: [address], [place] Color Blood small [facility]: [address], [place] Color PH 5.5 [facility]: [address], [place] Color Protein negative [facility]: [address], [place] Color Urobilinogen 0.2 [facility]: [address], [place] Color Nitrites negative [facility]: [address], [place] Color Leukocytes negative [facility]: [address], [place] Urinalysis, Dipstick Urine Color Color light yellow [facility]: [address], [place] Urine Color Appearance clear [facility]: [address], [place] Urine Color Glucose negative [facility]: [address], [place] Urine Color Bilirubin negative [facility]: [address], [place] Urine Color Ketones negative [facility]: [address], [place] Urine Color Specific [place] 1.015 [facility]: [address], [place] Urine Color Blood trace [facility]: [address], [place] Urine Color PH 5.5 [facility]: [address], [place] Urine Color Protein negative [facility]: [address], [place] Urine Color Urobilinogen 0.2 [facility]: [address], [place] Urine Color Nitrites positive [facility]: [address], [place] Urine Color Leukocytes trace [facility]: [address], [place] Urinalysis, Dipstick Color Color light yellow [facility]: [address], [place] Color Appearance clear [facility]: [address], [place] Color Glucose negative [facility]: [address], [place] Color Bilirubin negative [facility]: [address], [place] Color Ketones negative [facility]: [address], [place] Color Specific [place] 1.010 [facility]: [address], [place] Color Blood moderate [facility]: [address], [place] Color PH 5.5 [facility]: [address], [place] Color Protein negative [facility]: [address], [place] Color Urobilinogen 0.2 [facility]: [address], [place] Color Nitrites positive [facility]: [address], [place] Color Leukocytes trace [facility]: [address], [place] Urinalysis, Dipstick Color Glucose negative [facility]: [address], [place] Color Bilirubin negative [facility]: [address], [place] Color Ketones negative [facility] [address], [place] Color Specific [place] 1.005 [facility]: [address], [place] Color Blood trace [facility]: [address], [place] Color PH 5.5 [facility]: [address], [place] Color Protein negative [facility]: [address], [place] Color Urobilinogen 0.2 [facility]: [address], [place] Color Nitrites negative [facility]: [address], [place] Color Leukocytes negative [facility]: [address], [place] Urinalysis, Dipstick Urine Color Color yellow [facility]: [address], [place] Urine Color Appearance clear [facility]: [address], [place] Urine Color Glucose negative [facility]: [address], [place] Urine Color Bilirubin negative [facility]: [address], [place] Urine Color Ketones negative [facility]: [address], [place] Urine Color Specific [place] 1.030 [facility]: [address], [place] Urine Color Blood small [facility]: [address], [place] Urine Color PH 6.0 [facility]: [address], [place] Urine Color Protein negative [facility]: [address], [place] Urine Color Urobilinogen 1 [facility]: [address], [place] Urine Color Nitrites positive [facility]: [address], [place] Urine Color Leukocytes large [facility]: [address], [place] Urinalysis, Dipstick Urine Color Glucose negative [facility]: [address], [place] Urine Color Bilirubin negative [facility]: [address], [place] Urine Color Ketones negative [facility]: [address], [place] Urine Color Specific [place] 1.015 [facility]: [address], [place] Urine Color Blood trace [facility]: [address], [place] Urine Color PH 5.5 [facility]: [address], [place] Urine Color Protein negative [facility]: [address], [place] Urine Color Urobilinogen 1 [facility]: [address], [place] Urine Color Nitrites positive [facility]: [address], [place] Urine Color Leukocytes large [facility]: [address], [place] Urinalysis, Dipstick Color Glucose negative [facility]: [address], [place] Color Bilirubin negative [facility]: [address], [place] Color Ketones negative [facility]: [address], [place] Color Specific [place] 1.015 [facility]: [address], [place] Color Blood small [facility]: [address], [place] Color PH 6.5 [facility]: [address], [place] Color Protein negative [facility]: [address], [place] Color Urobilinogen 0.2 [facility]: [address], [place] Color Nitrites negative [facility]: [address], [place] Color Leukocytes large [facility] [address], [place] Electrocardiogram Rate & Rhythm 70 [facility]: [address] [facility] DC Interval 188 [facility]: [facility] 92 [facility]: [address] [facility] QT Interval 406 [facility]: [facility] Albumin:creatinine Ratio, Urine Type Urine Microlalbumin 10 mg/L [facility]: [address] [facility], [place] Type Urine Creatinine 10 mg/dL [facility]: [address] [facility] Type A:C Ratio 30-300 mg/g (Abnormal) [facility]: [address] [facility] Glucose, Fingerstick, Blood Blood Glucose: mg/dl 144 [facility]: [address] [facility] Past Encounters 06/04/2017 Adult Health Examination; Type 2 Diabetes Mellitus; Mixed Hyperlipidemia; Advance Directive Discussed with Patient; Benign Essential Hypertension; Depression Screening; Body Mass Index 30+ - Obesity Breonna Brown MD: [address] [place] [phone], Ph. 04/15/2017 Type 2 Diabetes Mellitus without Complication; Congestive Heart Failure [facility]: [address], [address], [place] [address], Ph. 04/09/2017 Type II Diabetes Mellitus Uncontrolled; Benign Essential Hypertension; Body Mass Index 30+ - Obesity; Mixed Hyperlipidemia; Chronic Diastolic Heart Failure; Coronary Arteriosclerosis in [place]tery; History of Tobacco Use; Morbid Obesity; Adult Health Examination; Atherosclerosis of Arteries of the Extremities; Type 2 Diabetes Mellitus Breonna Brown MD: [address] [place] [phone], Ph. 03/12/2017 Body Mass Index 30+ - Obesity; Benign Essential Hypertension; Mixed Hyperlipidemia; Type 2 Diabetes Mellitus without Complication; At Risk for Falls; Depression Screening; Chronic Diastolic Heart Failure; Coronary Arteriosclerosis in [place]tery; History of Tobacco Use; Morbid Obesity; Adult Health Examination; Influenza Vaccination; Atherosclerosis of Arteries of the Extremities; Type II Diabetes Mellitus Uncontrolled Breonna Brown MD: [address] [place] [phone], Ph. 02/15/2017 Requires Course of Hepatitis B Vaccination; Mixed Hyperlipidemia; Type 2 Diabetes Mellitus without Complication; Benign Essential Hypertension Breonna Brown MD: [address] [place] [phone], Ph. 11/27/2016 Type 2 Diabetes Mellitus without Complication; Body Mass Index 30+ - Obesity; Benign Essential Hypertension; Chronic Diastolic Heart Failure; Mixed Hyperlipidemia; Coronary Arteriosclerosis in [place]tery; History of Tobacco Use; Morbid Obesity; Adult Health Examination; Influenza Vaccination Breonna Brown MD: [address] [place] [phone], Ph. 11/15/2016 Type 2 Diabetes Mellitus without Complication; Mixed Hyperlipidemia Breonna Brown MD: [address] [place] [phone], Ph. 09/13/2016 Requires Course of Hepatitis B Vaccination Jacklyn Casanova MD: [address] [place] [phone], Ph. 08/14/2016 Type 2 Diabetes Mellitus without Complication; Benign Essential Hypertension; Chronic Diastolic Heart Failure; Mixed Hyperlipidemia; Coronary Arteriosclerosis in [place]; History of Tobacco Use; Morbid Obesity; Adult Health Examination; Requires Course of Hepatitis B Vaccination Jacklyn Casanova MD: [address] [place] [phone], Ph. 08/03/2016 Mixed Hyperlipidemia; Type 2 Diabetes Mellitus without Complication Jacklyn Casanvoa MD: [address] [place] [phone], Ph. 05/21/2016 Blood in Urine; History of Tobacco Use; Mixed Hyperlipidemia; Type 2 Diabetes Mellitus without Complication; Body Mass Index 30+ - Obesity; Adult Health Examination Jacklyn Casanova MD: [address] [place] [phone], Ph. 05/03/2016 Blood in Urine Jacklyn Casanova MD: [address] [place] [phone], Ph. 04/27/2016 Blood in Urine; Atherosclerosis of Arteries of the Extremities; History of Tobacco Use; Mixed Hyperlipidemia; Type 2 Diabetes Mellitus; Body Mass Index 30+ - Obesity; Adult Health Examination Jacklyn Casanova MD: [address] [place] [phone], Ph. 04/18/2016 Acute Urinary Tract Infection; Congestive Heart Failure; Coronary Arteriosclerosis in [place]; Angina Pectoris; Type 2 Diabetes Mellitus; History of Tobacco Use; Mixed Hyperlipidemia; Blood in Urine; Body Mass Index 30+ - Obesity; Adult Health Examination Jacklyn Casanova MD: [address] [place] [phone], Ph. 03/22/2016 Blood in Urine; Coronary Arteriosclerosis in [place]; Tobacco User; Mixed Hyperlipidemia; Type 2 Diabetes Mellitus without Complication; Body Mass Index 30+ - Obesity; Adult Health Examination Jacklyn Casanova MD: [address] [place] [phone], Ph. 03/15/2016 Blood in Urine; Coronary Arteriosclerosis in [place]; Tobacco User; Mixed Hyperlipidemia; Type 2 Diabetes Mellitus without Complication; Body Mass Index 30+ - Obesity; Adult Health Examination Jacklyn Casanova MD: [address] [place] [phone], Ph. 03/08/2016 Acute Urinary Tract Infection; Blood in Urine; Coronary Arteriosclerosis in [place]; Tobacco User; Mixed Hyperlipidemia; Adult Health Examination; Type 2 Diabetes Mellitus without Complication Jacklyn Casanova MD: [address] [place] [phone], Ph. 02/29/2016 Dysuria; Coronary Arteriosclerosis in [place]; Type 2 Diabetes Mellitus without Complication; Tobacco User; Mixed Hyperlipidemia; Adult Health Examination Jacklyn Casanova MD: [address] [place] [phone], Ph. 01/17/2016 Type 2 Diabetes Mellitus without Complication; Mixed Hyperlipidemia; Benign Essential Hypertension; Tobacco User; Body Mass Index 30+ - Obesity; Adult Health Examination Jacklyn Casanova MD: [address] [place] [phone], Ph. 12/27/2015 Type 2 Diabetes Mellitus without Complication; Mixed Hyperlipidemia; Benign Essential Hypertension; Body Mass Index 30+ - Obesity; Adult Health Examination; Tobacco User; Influenza Vaccination; Carotid Bruit; Contusion Jacklyn Casanova MD: [address] [place] [phone], Ph. Social History Smoking Status Former Smoker Vaccine List Vaccine Type Hep B, adult 08/14/2016 09/13/2016 02/15/20171 mL influenza, high dose seasonal 12/27/20150.5 mL influenza, unspecified formulation 01/04/2015 Notes: decline's all vaccine's-06/04/2017-staci Plan of Care Patient Instructions Screening Recommendations 1. Vaccines Pneumococcal: discussed today and information sent with patient in their [facility] health folder Influenza: discussed today and information sent with patient in their [facility] health folder Shingles: discussed today and information sent with patient in their [facility] health folder Tetanus: discussed today and information sent with patient in their [facility] health folder 2. Mammography Screening: discussed today and information sent with patient in their [facility] health folder 3. Colorectal cancer Screening Colonoscopy: discussed today and information sent with patient in their [facility] health folder Fecal Occult Blood: discussed today and information sent with patient in their [facility] health folder 4. Bone Mass Measurement: discussed today 5. Pap test / Pelvic Exam Screening: discussed today 6. Eye Exam Screening: discussed today 7. Cholesterol Screening: discussed today 8. Diabetes Screening: discussed today It was good to see you in the office today for your Medicare Annual Wellness Visit. You have been provided some information on healthy nutrition, including a diet rich in fruits and vegetables, minimizing simple carbohydrates, salt, and saturated fats. I want to encourage regular cardiovascular exercise such as walking at least 30 minutes daily, 5 times per week. Please remember to schedule any preventive health measures that we talked about today. You have also been provided education on fall prevention and community- based lifestyle interventions to help reduce health risks and promote healthy living in your [facility] folder. DIABETES PROBLEM The patient has a diagnosis of diabetes. GOAL The patients condition will be managed in the outpatient setting. INTERVENTIONS Educate the patient that a Hemoglobin A1C is an average of their blood glucose levels over the past 3 months, and that it is important to have this lab draw every 3-6 months depending on the results of the test. Patient will need to have a Hemoglobin A1C <8. Explain to the patient risk factors of long-term complications of uncontrolled diabetes, which include: nerve damage to extremities, amputations, skin infections, kidney and heart dysfunction, dementia, cataracts, and pneumonia. Educate the patient on importance of annual flu and pneumonia vaccinations. Educate the patient on current medications and possible side effects. . Educate patient and caregiver on the importance of eating throughout the day 4- 6 small frequent healthy meals to include foods such as fish, chicken, turkey, complex carbs-legumes, whole grains, brown rice to stabilize and balance blood sugars to avoid drop or rise in blood sugar. Educate patient and caregiver to limit/avoid sugars, starches, simple carbohydrates, and organ meats. . Encourage patient to creat a plate of 50% non starchy vegetables such as green leafy vegetables, carrots, cabbage, 25% proteins such as beans, chicken, and 25% of grains or starchy foods such as brown rice, corn. Reminders Provider Appointments None recorded. Lab None recorded. Referral None recorded. Procedures None recorded. Surgeries None recorded. Imaging None recorded. Vitals 06/04/2017 08:45AM Est Patient Height Weight BMI Blood Pressure 5 ft 3 in 206 lbs 36.5 kg/m2 138/66 mm[Hg] 04/09/2017 09:30AM Est Patient Height Weight BMI Blood Pressure 5 ft 3 in 205 lbs 36.3 kg/m2 132/70 mm[Hg] 03/12/2017 10:15AM Est Patient Height Weight BMI Blood Pressure 5 ft 3 in 207 lbs 36.7 kg/m2 132/64 mm[Hg] 11/27/2016 09:30AM Est Patient Height Weight BMI Blood Pressure 5 ft 3 in 204 lbs 36.1 kg/m2 112/68 mm[Hg] 08/14/2016 08:00AM Est Patient Height Weight BMI Blood Pressure 5 ft 3 in 206 lbs 36.5 kg/m2 (1) 170/72 mm[Hg] (2) 140/70 mm[Hg] 05/21/2016 11:30AM Est Patient Height Weight Blood Pressure 5 ft 3 in 137/49 mm[Hg] 04/27/2016 08:15AM Est Patient Height Weight BMI Blood Pressure 5 ft 3 in 199 lbs 35.3 kg/m2 148/66 mm[Hg] 04/18/2016 11:30AM Work In Same Day Height Weight BMI Blood Pressure 5 ft 3 in 194 lbs 34.4 kg/m2 130/65 mm[Hg] 03/22/2016 08:15AM Est Patient Height Weight BMI Blood Pressure 5 ft 3 in 185 lbs 32.8 kg/m2 124/69 mm[Hg] 03/15/2016 07:30AM Est Patient Height Weight BMI Blood Pressure 5 ft 3 in 188 lbs 33.3 kg/m2 126/55 mm[Hg] 03/08/2016 07:00AM Est Patient Height Weight BMI Blood Pressure 5 ft 3 in 193 lbs 34.2 kg/m2 110/53 mm[Hg] 02/29/2016 09:15AM Est Patient Height Weight Blood Pressure 5 ft 3 in 138/68 mm[Hg] 01/17/2016 09:15AM Est Patient Height Weight BMI Blood Pressure 5 ft 3 in 192 lbs 34 kg/m2 113/68 mm[Hg] 12/27/2015 08:30AM INSURANCE PLAN SPECIALIST/EST CPX Height Weight BMI Blood Pressure 5 ft 3 in 195 lbs 34.5 kg/m2 (1) 158/81 mm[Hg] (2) 140/75 mm[Hg]
[2018-03-09] MEDS ORDERED: ACETAMINOPHEN 1000 MG/100 ML IV STA (04:21)
--- NOTE | 2018-03-09 04:45 | NUR ---
IV TYLENOL GIVEN AT THIS TIME.
[2018-03-09] MEDS: SODIUM CHLORIDE 0.9% 1000ML 1,000 ML IV SCH ×2 (06:08→11:55)
--- NOTE | 2018-03-09 06:08 | NUR ---
patient is a new admit that arrived via stretcher. patient is awake and talking. patient has been helped into the bed. bed is in the lowest position and call arriola is within reach. will continue to monitor patient.
[2018-03-09] MEDS ORDERED: CEFTRIAXONE SOD 1 GM/NS 50 ML 50 ML IV SCH (06:30)
[2018-03-09] MEDS ORDERED: FUROSEMIDE40 MG PO (06:31)
[2018-03-09] MEDS ORDERED: METFORMIN HCL500 MG PO (06:31)
[2018-03-09] MEDS ORDERED: ATORVASTATIN CA20 MG PO (06:31)
[2018-03-09] MEDS ORDERED: GLIPIZIDE5 MG PO (06:31)
[2018-03-09] MEDS ORDERED: ASPIRIN81 MG PO (06:31)
[2018-03-09] MEDS: METRONIDAZOLE 500MG/NS 100ML IV SCH ×4 (06:32→22:43)
--- NOTE | 2018-03-09 07:47 | NUR ---
Received patient and alert and responsive, has fever and chills and on IV fluids at this time, call to Dr. Fulton to report and will monitor.
--- NOTE | 2018-03-09 08:28 | NUR ---
Second call to Dr. Fulton for call back and further orders
--- NOTE | 2018-03-09 08:40 | NUR ---
Call back from Dr. Merlos and orders in place for Abx Stat and APAP for fever and blood cultures and urine cultures ordered and CXR.
[2018-03-09] MEDS ORDERED: LEVOFLOXACIN 500MG/D5W 100ML 100 ML IV ONE (08:45)
[2018-03-09] MEDS ORDERED: ACETAMINOPHEN 325 MG TAB PO PRN (09:00)
--- NOTE | 2018-03-09 09:19 | NUR ---
Consult called in to Dr. Justice for KISHORE
[2018-03-09] MEDS ORDERED: NYSTATIN 15 GM POWDER UD BTL TOP PRN (09:30)
--- NOTE | 2018-03-09 09:31 | Diagnostic Imaging Report ---
EXAMINATION: CHEST SINGLE (PORTABLE) COMPARISON: CT abdomen/pelvis 0147 hours INDICATION: ^Fever ^[id number] ^[id number] DISCUSSION: Frontal view of the chest obtained at 0906 hours. HEART AND MEDIASTINUM: The cardiomediastinal silhouette is unremarkable. LINES: None. LUNGS: Lung volumes are low. Mass in the left lower lobe identified on CT is poorly visualized by x-ray. Vascular markings are prominent, likely accentuated due to low lung volumes. No confluent infiltrates. PLEURA: No pleural effusion or pneumothorax. BONES AND SOFT TISSUES: No focal osseous lesion. The soft tissues are normal. IMPRESSION: Low lung volumes. No confluent infiltrates to suggest pneumonia. Left lower lobe nodule is poorly visualized by x-ray. Signed by: Dr. Cristian Chandra MD on 03/09/2018 9:28 AM
[2018-03-09] MEDS ORDERED: MORPHINE SULFATE INJ 4 MG/ML INJ IV PRN ×2 (10:15→12:00)
[2018-03-09] MEDS ORDERED: LISINOPRIL10 MG PO (10:30)
[2018-03-09] MEDS ORDERED: CLOPIDOGREL75 MG PO (10:30)
--- NOTE | 2018-03-09 10:30 | NUR ---
Called and spoke with Sister Mira and reviewed home medications with me and entered in profile waiting renewal
[2018-03-09] MEDS ORDERED: DEXTROSE 50% SYRINGE 50 ML IV PRN (11:15)
--- NOTE | 2018-03-09 11:26 | NUR ---
Patient alert and rounds by attending and notified of home meds in profile and will review and possibly renew.
[2018-03-09] MEDS ORDERED: INSULIN REGULAR, HUMAN 100 UNIT/1 ML 3ML VIAL SQ SCH (11:30)
[2018-03-09 11:56] LABS: ANION GAP 15.6 mmol/L (8-16); CALCIUM 8.8 mg/dL (8.4-10.2); CREATININE, SERUM 2.28 mg/dL (0.57-1.11); POTASSIUM 3.6 mmol/L (3.5-5.1)
[2018-03-09] MEDS ORDERED: FAMOTIDINE 20 MG/2 ML VIAL IV ONE (12:00)
--- NOTE | 2018-03-09 13:17 | History and Physical ---
PRIMARY CARE PHYSICIAN: [facility], Dr. Brown. CHIEF COMPLAINT: Abdominal pain, nausea, and vomiting for 1 week. HPI: Ms. Chávez is a 78-year-old female presented with nausea, vomiting, and diarrhea with abdominal pain going on for last 1 week. She reports that the symptoms started gradually, progressively got worse. She felt extremely dehydrated and abdominal discomfort was getting worse, so she decided to come to the emergency room. She denies any chest pain. She feels that she is a little short of breath as well. She is an ex-smoker, [id number] smoking history, quit 2 years ago. She denies any focal weakness and she did not eat anything unusual. She reports that her son was sick with diarrhea at home. REVIEW OF SYSTEMS GENERAL: Denies any chills, was having fevers. HEAD: Denies any head trauma. ENT: Denies any earache. CVS: Denies any chest pain or palpitations. GI: As in HPI. MUSCULOSKELETAL: Generalized weakness. Neuro: Denies any focal weakness or seizures. The rest of the review systems are negative except as in HPI. PAST MEDICAL HISTORY: Hypertension, coronary artery disease, diabetes, hyperlipidemia. PAST SURGICAL HISTORY: Hip replacement surgery, cholecystectomy, hysterectomy. FAMILY AND SOCIAL HISTORY: She used to work in [employer], now retired. She lives with her daughter. She is currently not . She smoked for 55 years between 1 to 2 packs per day. She has 5 children. PHYSICAL EXAMINATION VITAL SIGNS: Temperature 103.8, pulse of 96, blood pressure 130/60, respiratory rate of 18, O2 sat 94%. HEENT: Head atraumatic, normocephalic. NECK: Supple. CHEST: Clear to auscultation bilaterally. No wheezing. ABDOMEN: Soft. Mild generalized tenderness, but no focal tenderness, no rebound. Bowel sounds audible. No hepatosplenomegaly. EXTREMITIES: No clubbing, cyanosis, or edema. NEUROLOGIC: Awake and alert, following commands. Responds to questions appropriately. LABS: Sodium 128, potassium 3.8, BUN 45, creatinine 2.76, bicarb is 17, blood sugar 164, anion gap of 20.8. White count of 11.44, hemoglobin 11.5, platelets 207. Urinalysis showed urine wbc's more than 50, urine bacteria [address] of the abdomen and pelvis shows diverticulosis and showing 2 cm pulmonary nodule as an incidental finding and adrenal nodule as well, small hiatal hernia. ASSESSMENT/PLAN: Ms. Chávez is a 78-year-old female presented with nausea, vomiting, and diarrhea, colonic diverticulosis on CT abdomen and pelvis. She is in acute renal failure along with hyponatremia, also has leukocytosis with high-grade fever of 103 to 104. IMPRESSION 1. Fever. Etiology could be urinary tract infection versus diverticulitis. Incidental finding of lung nodule on the CT abdomen and pelvis and I have reviewed the images, it does not look like pneumonia, it is a solid nodule. I will continue the patient on Flagyl. I have added Levaquin. She was unable to get Rocephin because she is allergic to PENICILLIN. I will consult infectious disease for further recommendations. 2. Lung nodule in a patient who has a [id number] smoking history. I will do a CT chest without contrast to further evaluate the lung nodule. There is no family history of cancers. 3. Ex-smoker. She is not wheezing at this point. No need for any nebulizer treatment at this point. 4. Acute kidney injury. No previous baseline creatinine is available. I will consult nephrology. Continue the patient on IV hydration. Check stat BMP. 5. Metabolic acidosis, increased anion gap. There is no ABG. I will check an ABG and lactic acid. Could be sepsis versus DKA. We will consult Dr. Rob for management of diabetes. 6. Coronary artery disease, currently stable. We will resume the home medications. 7. Abdominal pain. We will decrease the morphine. Continue pain control with that. 8. Follow stat BMP and ABG. Critical care time spent 50 minutes. Job#: [id number] DIANA
[2018-03-09 14:25] LABS: FREE T4 (FREE THYROXINE) 1.12 ng/dL (0.9-1.8); THYROID STIMULATING HORMONE 0.763 uIU/mL (0.350-4.940)
[2018-03-09] MEDS: [UNRECOGNIZED DRUG - OTHER] IV SCH ×2 (14:39→22:43)
[2018-03-09] MEDS: SODIUM BICARBONATE IV SCH ×2 (14:39→22:43)
[2018-03-09] MEDS: POTASSIUM CHLORIDE IV SCH ×2 (14:39→22:43)
--- NOTE | 2018-03-09 14:45 | NUR ---
orders in place for free cortisol and Metanephrine, 24 hour urine started at this time
--- NOTE | 2018-03-09 16:16 | Consultation ---
DATE OF CONSULTATION: RENAL CONSULTATION Thank you for the consultation. Dr. Kessler. HISTORY OF PRESENT ILLNESS: Ms. Chávez is a pleasant 78-year-old female with past medical history significant for history of diabetes mellitus, hypertension, what appears to be chronic kidney disease, although stage 4 CKD is not determined at this time. Came into the hospital apparently with abdominal pain, nausea, vomiting, diarrhea for several days' duration. Creatinine was found to be elevated on admission. Creatinine was 2.76, sodium 128, bicarb of 17. Patient's creatinine has improved to 2.3 after IV fluid hydration. Patient has also been placed on IV antibiotics, admitted for suspected colitis. Patient's nausea, vomiting, and diarrhea have improved. Creatinine is better today. Renal consultation has been asked for the management of acute kidney injury on chronic kidney disease. Currently, no fever, no chills. No nausea, no vomiting. No diarrhea. No active vomiting. No abdominal pain. No dysuria, frequency, urgency of urination. No other specific symptoms besides what is outlined above. PAST MEDICAL HISTORY: As outlined above. ALLERGIES: TO IODINATED CONTRAST, PENICILLIN, AND CODEINE. SOCIAL HISTORY: No tobacco, no alcohol use. FAMILY HISTORY: Noncontributory. REVIEW OF SYSTEMS: See HPI, otherwise all systems negative. MEDICATIONS AT HOME: Aspirin, atorvastatin, Plavix, furosemide, glipizide, lisinopril, and metformin. PHYSICAL EXAMINATION VITAL SIGNS: Blood pressure is 142/81, pulse 68, respirations 18, afebrile. HEENT: No cervical lymphadenopathy. Mucous membranes moist with good skin turgor. NECK: Supple without masses. No elevated JVD. CHEST: Good chest wall expansion. No chest wall tenderness. LUNGS: Clear to auscultation bilaterally. CARDIOVASCULAR: S1, S2. No murmurs, gallops, or rubs. ABDOMEN: Soft. Positive bowel sounds. Nontender. No organomegaly. EXTREMITIES: No evidence of lower extremity edema. No clubbing. No cyanosis. NEUROLOGIC: Awake, alert, and oriented x3. Grossly nonfocal exam. LABS: As follows; sodium is 128, potassium 3.6, chloride 98, bicarb 18, BUN 43, creatinine 2.3, glucose 159, calcium 8.8, lactic acid was normal. Yesterday, creatinine was 2.76. IMPRESSION AND PLAN 1. Acute kidney injury on chronic kidney disease, stage for chronic kidney disease cannot be determined at this time since baseline creatinine is not known. Acute kidney injury is likely secondary to prerenal azotemia, which is improving with IV fluid hydration. Patient; however, has developed a persistent metabolic acidosis from the acid load of the normal saline. I will change fluids to the following fluids: Half normal saline plus 75 mEq of sodium bicarb plus 20 mEq of potassium chloride later and continue that at 125 mL per hour . Check a.m. labs including basic metabolic panel, alk phos, and CBC. We will get urine electrolytes. We will also get a urine protein or creatinine ratio. We will get a urinalysis with culture and sensitivity. Evaluate for UTI/pyelonephritis. We will also get a baseline renal ultrasound, evaluate for chronicity, evaluate for any cystic renal disease and make further recommendations. Avoid potential nephrotoxic agents at this time. Avoid LINDSAY inhibitors, ARBs, nonsteroidal anti-inflammatory drugs, and IV dye. Dose all antibiotics for creatinine clearance less than 30 mL per minute. We will continue to follow closely with you and make further recommendations. We will also have her come back and see me in the office setting when she is discharged 2. Hypertension. Blood pressure is currently controlled and stable. Continue off LINDSAY inhibitors and ARBs. 3. Hyponatremia, suspect secondary to hypovolemic hypotonic hyponatremia. We will hydrate with isotonic IV fluids as outlined above. Thank you once again for the consultation, Dr. Kessler. We will follow the patient closely with you and make further recommendations. Job#: [id number] PKU cc:DR. GURWINDER KESSLER
[2018-03-09] MEDS: INSULIN LISPRO 100 UNIT/1 ML 3ML VIAL SQ SCH ×2 (17:02→21:00)
[2018-03-09 17:39] LABS: ABG HCO3 18 mmol/L (23-28); ABG PCO2 32 mmHg (41-51); ABG PH 7.34 (7.31-7.41); ABG PO2 34 mmHg (80-105)
[2018-03-09 18:37] LABS: CLARITY,URINE HAZY (CLEAR); COLOR,URINE YELLOW (YELLOW); KETONES,URINE NEGATIVE (NEGATIVE); LEUKOCYTE ESTERASE ,URINE TRACE (NEGATIVE); NITRITE,URINE NEGATIVE (NEGATIVE); PROTEIN,URINE DIPSTICK NEGATIVE (NEGATIVE); URINE UROBILINOGEN 0.2 mg/dL (0.2 - 1)
[2018-03-09 18:38] LABS: BILIRUBIN,URINE NEGATIVE (NEGATIVE)
[2018-03-09 18:39] LABS: BACTERIA,URINE MANY /HPF; EPITHELIAL CELLS,URINE MODERATE /LPF; RBC,URINE 0-5 /HPF (0-5)
[2018-03-09 18:47] LABS: CREATININE,URINE RANDOM 59.01 mg/dL (47-110)
--- NOTE | 2018-03-09 19:25 | NUR ---
Called and checked about CT chest to be completed and radiology stated will be coming to get patient soon
--- NOTE | 2018-03-09 19:38 | Consultation ---
DATE OF CONSULTATION: March 09, 2018 ENDOCRINE CONSULTATION PATIENT OF: Dr. Merlos. Thank you very much for referring this patient. This is a 78-year-old white female who is referred to me for evaluation of diabetes mellitus and adrenal mass, which was found on the CT scan of the abdomen. The patient came to the hospital with history of nausea, vomiting, and diarrhea. She is a known diabetic at home and takes oral hypoglycemics. Patient also has [id number] venous insufficiency and hypertension. PHYSICAL EXAMINATION GENERAL: Today, the patient is alert, awake, a little bit apprehensive. She is moderately overweight. VITAL SIGNS: Her heart rate is around 78. Blood pressure 140/80 mmHg. HEENT: Essentially unremarkable. Thyroid is palpable. Clinically, she is near euthyroid. CHEST: Bilateral vesicular breathing. No rales. CARDIAC: Both 1st and 2nd sounds. There is no 3rd or 4th heart sound. Ejection sound grade 2/6. Patient has evidence of diabetic sensory neuropathy in both lower extremities. She has evidence of UTI and her blood sugars have been in the ranges of 150 to 250 range. Her creatinine is around 2.76 and anion gap at the time of admission was 20, now it is around 15.6. CLINICAL IMPRESSION 1. Right adrenal nodule. 2. Diabetes mellitus type 2, uncontrolled with complications. 3. Urinary tract infection. 4. Lung mass. PLAN: At this time is to do a hemoglobin A1c, thyroid function test. Put her on sliding scale insulin and do a 24-hour urine BME and metanephrine levels. Thanks for referring this patient. I will be following this patient with you. Job#: [id number] BUFFY
--- NOTE | 2018-03-09 20:00 | NUR ---
Patient is requesting to use the bedside commode. patient has been helped onto the bedside commode. call arriola has been placed near patient. patient has been instructed to use the call light when she is done using the bedside commode.
[2018-03-09 20:26] LABS: SODIUM,URINE 39 mmol/L
--- NOTE | 2018-03-09 20:30 | NUR ---
while this nurse was performing patient care i was informed by the patient transition of care specialist that the patient was on the floor. upon entering the room patient was observed lying on the floor next to the bedside commode. Head to toe assessment complete. No injuries observed. patient is complaining of pain in the right knee. patient was helped up off of the floor and placed in the bed. bed is in lowest position and call arriola next to patient. attending physician notified via telephone. Received new orders for STAT bilateral knee x-ray. Attempted to reach patient's daughter via telephone but unable to get hold of daughter. Patient was medicated with prn 650mg acetaminophen for right knee pain. Will continue to monitor patient.
--- NOTE | 2018-03-09 22:09 | Diagnostic Imaging Report ---
Bilateral knee radiographs - 3 view(s) each HISTORY: Pain. COMPARISON: None available. FINDINGS: RIGHT: No displaced fracture. The osseous alignment is within normal limits. The joint spaces are well-maintained. Vascular stent projecting over the mid thigh. Vascular calcifications. LEFT: No displaced fracture. The osseous alignment is within normal limits. The joint spaces are well-maintained. Vascular stent projecting over the mid and distal thigh. Vascular calcifications. IMPRESSION: No acute radiographic abnormality. Signed by: DR. Christopher Miranda MD on 03/09/2018 10:05 PM
[2018-03-09] MEDS: ATORVASTATIN 40 MG TAB PO SCH (22:42)
[2018-03-10] VITALS (7 sets, daily range): BP systolic 90–146; BP diastolic 48–83
--- NOTE | 2018-03-10 01:03 | Diagnostic Imaging Report ---
EXAM: CT Chest WITHOUT contrast INDICATION: lung nodules COMPARISON: CT abdomen and pelvis 03/09/2018 TECHNIQUE: Chest was scanned utilizing a multidetector helical scanner from the lung apex through the level of the adrenal glands without administration of IV contrast. Absence of intravenous contrast decreases sensitivity for detection of lymphadenopathy and vascular pathology. Coronal and sagittal reformations were obtained. Routine protocol was performed. IV CONTRAST: None COMPLICATIONS: None RADIATION DOSE: Total DLP: 493.9 mGy*cm Estimated effective dose: (DLP x 0.014 x size factor) mSv Dose modulation, iterative reconstruction, and/or weight based adjustment of the mA/kV was utilized to reduce the radiation dose to as low as reasonably achievable. FINDINGS: LINES/ TUBES: None. LUNGS AND AIRWAYS: Scattered pulmonary nodules, including (on series 3): * Left lower lobe 2.2 x 2 cm noncalcified solid pulmonary nodule abuts the posteromedial pleura (image 88). * Left lower lobe 0.3 cm nodule (image 55) * Left upper lobe 0.6 cm nodule (image 31) * Right upper lobe 0.5 cm groundglass nodule (image 22) * Right upper lobe 0.3 cm nodule (image 48) * Right upper lobe 0.3 x 0.8 cm nodule appears along the minor fissure, likely lymph node (image 55, sagittal 60) * Right middle lobe 0.3 cm nodule (image 76) Scattered subpleural reticulations. No consolidations. PLEURA: The pleural spaces are clear. HEART AND MEDIASTINUM: Right thyroid lobe 1.3 cm hypoattenuating nodule. No mediastinal, hilar or axillary lymphadenopathy. The heart is normal in size.. There is no pericardial effusion. Three-vessel coronary artery calcifications. UPPER ABDOMEN: Please refer to same-day CT abdomen and pelvis. BONES: Partially visualized hardware in the right humeral head. Multilevel degenerative changes of the thoracic spine with multilevel posterior disc osteophyte complexes which narrow the spinal canal. No acute or suspicious osseous lesions. SOFT TISSUES: Unremarkable. IMPRESSION: 1. Left lower lobe 2.2 cm pulmonary nodule. Consider management per Fleischner Society [address] at 3 months, PET/CT, or tissue sampling. 2. Additional scattered pulmonary nodules as described above. 3. No lymphadenopathy or suspicious osseous lesions. Signed by: DR. Christopher Miranda MD on 03/10/2018 1:00 AM
[2018-03-10 05:11] LABS: BASOPHILS % 0.3 % (0.0-1.0); EOSINOPHILS % 0.4 % (0.0-6.0); HEMATOCRIT 33.2 % (34.2-44.1); HEMOGLOBIN 11.1 g/dL (12.0-16.0); LYMPHOCYTES % 12.9 % (18.0-39.1); MEAN CORPUSCULAR HEMOGLOBIN 30.3 pg (28-32); MEAN CORPUSCULAR HGB CONC 33.4 g/dL (31-35); MEAN CORPUSCULAR VOLUME 90.7 fL (81-99); MONOCYTES # (AUTO) 0.7 (0.2-0.8); MONOCYTES % 8.8 % (4.4-11.3); NEUTROPHILS % 77.3 % (38.7-80.0); PLATELET COUNT 188 x10e3/uL (140-360); RED BLOOD COUNT 3.66 x10e6/uL (3.6-5.1); RED CELL DISTRIBUTION WIDTH 13.2 % (11.7-14.4)
[2018-03-10] MEDS: [UNRECOGNIZED DRUG - OTHER] IV SCH ×3 (05:12→18:01)
[2018-03-10] MEDS: METRONIDAZOLE 500MG/NS 100ML IV SCH (05:12)
[2018-03-10] MEDS: POTASSIUM CHLORIDE IV SCH ×3 (05:12→18:01)
[2018-03-10] MEDS: SODIUM BICARBONATE IV SCH ×3 (05:12→18:01)
[2018-03-10 05:26] LABS: ANION GAP 14.8 mmol/L (8-16); CALCIUM 9.4 mg/dL (8.4-10.2); CREATININE, SERUM 1.48 mg/dL (0.57-1.11); POTASSIUM 3.8 mmol/L (3.5-5.1)
[2018-03-10 05:46] LABS: MAGNESIUM 1.7 MG/DL (1.3-2.1); PHOSPHORUS 3.5 MG/DL (2.3-4.7)
--- NOTE | 2018-03-10 07:00 | NUR ---
Walking rounds done and report received from night nurse. POC discussed. Patient instructed to call for assistance as needed and verbalized understanding. Bed in lowest position, locked and, call arriola within reach.
[2018-03-10] MEDS: INSULIN LISPRO 100 UNIT/1 ML 3ML VIAL SQ SCH ×4 (07:30→20:55)
[2018-03-10] MEDS: ASPIRIN 81 MG CHEW TAB PO SCH (08:49)
[2018-03-10] MEDS: CLOPIDOGREL BISULFATE 75 MG TAB PO SCH (08:49)
[2018-03-10] MEDS ORDERED: CLINDAMYCIN 600MG / 50ML 50 ML IV SCH (12:00)
--- NOTE | 2018-03-10 14:21 | NUR ---
SOCIAL WORK INITIAL ASSESSMENT Expanded Function Dental Assistant to bedside to discuss plan of care with patient/family. CM/SW role and care transitions discussed. Anticipated discharge plan discussed along with duration of care. CM/SW discussed patients right to make decisions in care. CM/SW work hours given. Patient lives: IN OWN HOUSE WITH DAUGHTER Admit/Transfer: VIA HOME POA/Emergency contact: DAUGHTER IS SHANNAN [phone] PT PHONE IS [phone] Current/Previous Home Health: NONE PCP/Follow-up Care: RENETTA GONZALEZ Current/Previous DME: [facility] Other Services: NONE Employment Status: RETIRED Areas of Concerns: NONE Referral Needs: NONE Education Needs: NONE IMM/RUIZ given and signed (if applicable): RUIZ Goal for discharge: RETURN HOME WITH DAUGHTER INDEPENDENTLY CM/SW left business card at the bedside with contact information. Name and number was also written on the patients whiteboard. Patient verbalized understanding of discussion. CM will follow-up with ongoing discharge and transition of care needs.
--- NOTE | 2018-03-10 15:17 | Consultation ---
DATE OF CONSULTATION: March 10, 2018 REASON FOR CONSULTATION: Sepsis. This patient who is a 78-year-old female comes in with a 1-week history of not feeling well, nausea, vomiting, abdominal discomfort, and diarrhea. Patient comes into the emergency room. She was evaluated and admitted. She is an ex-smoker. She had a 50-pack year smoking history. Quit years ago. No drug abuse or alcohol abuse. She does have a history of hypertension, coronary artery disease, status post stent placement, diabetes mellitus, hyperlipidemia. PAST SURGICAL HISTORY: Hip replacement, cholecystectomy AND hysterectomy. ALLERGIES: NKA. FAMILY HISTORY: She used to work in a [employer]. Had smoked as mentioned above, but quit recently. Patient was admitted and started on antibiotics. Infectious disease was asked to see the patient. She was seen by renal for acute kidney injury. LABORATORY DATA: Reviewed. Urine showing gram-negative rods on March 09, 2018. On March 09, 2018, it showed strep species. Her blood cultures are no growth. Her labs, white count was 7.7, hemoglobin 11.1, hematocrit 33. Sodium 133, potassium 3.8, creatinine 1.48. Patient is currently on clindamycin, aspirin, Zofran, Tylenol. Patient had a CT of the abdomen and pelvis on March 09, 2018, and shows left lower lobe pulmonary nodules, multiple lesions noted. Recommend MRI evaluations. 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 PHYSICAL EXAMINATION GENERAL: She is currently alert and oriented. Does not seem to be in acute distress. VITALS: Stable. Currently afebrile. HEENT: She is not icteric. NECK: Supple. CHEST: Clear. Coarse. ABDOMEN: Soft. Bowel sounds present. No tenderness. EXTREMITIES: No edema. IMPRESSION 1. Urinary tract infection with streptococcus: Will start the patient on Rocephin 2 g q.24 h. 2. Abnormal computerized tomography: Follow up with MRI is recommended. 3. Nausea and vomiting: Seems to have resolved. Could be gastroenteritis. Will discuss with urology. I am aware of penicillin allergies. Will follow. Job#: [id number] [place]
[2018-03-10] MEDS: CEFTRIAXONE SOD 2 GM/NS 100 ML 100 ML IV SCH ×2 (15:21→15:33)
--- NOTE | 2018-03-10 15:43 | Diagnostic Imaging Report ---
PROCEDURE:US RETROPERITONEAL ( KIDNEY ). COMPARISON:Patients [facility], CT, CT ABDOMEN/PELVIS WO, 03/09/2018, 1:45. INDICATIONS:Not provided. TECHNIQUE: Rivera-scale and color sonographic images of the bilateral kidneys and bladder where obtained in transverse and longitudinal planes. FINDINGS: RIGHT KIDNEY: Measures 12.6 x 5.1 x 4.4 cm; cortex measures 2.2 cm Cysts: There is a right lower pole renal cyst measuring 2.1 x 2.0 x 1.9 cm. Solid masses: None Stones: None Hydronephrosis: None Echogenicity: Normal LEFT KIDNEY: Measures 10.3 x 4.7 x 5.2 cm, cortex measures 1.7 cm Cysts: Several cysts within the left kidney; largest in the midpole measuring 3.5 x 3.8 x 3.4 cm. Lateral midpole cyst measures 1.8 x 1.5 x 1.6 cm. Solid masses: None Stones: None Hydronephrosis: None Echogenicity: Normal Bladder: Normal CONCLUSION: Bilateral renal cysts. Raul Olivarez D.O. Dictated by: Raul Olivarez D.O. on 03/10/2018 at 15:50 Electronically approved by: Raul Olivarez D.O. on 03/10/2018 at 15:50
--- NOTE | 2018-03-10 15:46 | Progress Note ---
DATE: March 10, 2018 RENAL PROGRESS NOTE SUBJECTIVE: Followed for acute kidney injury on chronic kidney disease, stage 3. Sodium continues to improve. Bicarb is better, also. The patient's creatinine is better, also, in response to IV fluids. No nausea, no vomiting, no chest pain, no fever, no chills, no other symptoms. OBJECTIVE VITAL SIGNS: Have been noted and are stable. Blood pressure is 140/68, 74 pulse, afebrile. LUNGS: Clear to auscultation bilaterally. CARDIOVASCULAR: S1, S2. No murmurs or rubs. ABDOMEN: Soft. Nontender. EXTREMITIES: No edema. LABS: Potassium 3.8, sodium 133, BUN 33, creatinine 1.48. IMPRESSION AND PLAN 1. Acute kidney injury on chronic kidney disease, stage 3, at baseline likely chronic kidney disease, stage 3. Acute kidney injury continues to improve. Will decrease IV fluid rate to 75 mL per hour and will discontinue IV fluids tomorrow. 2. Hypertension, stable. 3. Hyponatremia, improving, likely from hypovolemic, hypotonic hyponatremia. 4. Metabolic acidosis, improving in response to IV fluids with bicarbonate. Job#: [id number]
--- NOTE | 2018-03-10 19:11 | NUR ---
Report given to oncoming shift. Call arriola within reach.
--- NOTE | 2018-03-10 19:20 | NUR ---
report received and walking rounds complete.
[2018-03-10] MEDS: ATORVASTATIN 40 MG TAB PO SCH (20:11)
[2018-03-11] VITALS (7 sets, daily range): BP systolic 117–154; BP diastolic 54–70
[2018-03-11 04:54] LABS: OCCULT BLOOD STOOL NEGATIVE (NEGATIVE)
[2018-03-11] MEDS: [UNRECOGNIZED DRUG - OTHER] IV SCH (07:06)
[2018-03-11] MEDS: SODIUM BICARBONATE IV SCH (07:06)
[2018-03-11] MEDS: POTASSIUM CHLORIDE IV SCH (07:06)
--- NOTE | 2018-03-11 07:10 | NUR ---
Walking rounds done and report received from night nurse. Patient is in NAD. POC discussed. Patient instructed to call for assistance as needed and verbalized understanding. Call arriola within reach.
[2018-03-11] MEDS: INSULIN LISPRO 100 UNIT/1 ML 3ML VIAL SQ SCH ×4 (07:30→21:00)
--- NOTE | 2018-03-11 09:30 | NUR ---
Dr. Merlos aware of ESBL in urine.
[2018-03-11] MEDS: ASPIRIN 81 MG CHEW TAB PO SCH (09:36)
[2018-03-11] MEDS: CLOPIDOGREL BISULFATE 75 MG TAB PO SCH (09:36)
[2018-03-11 10:14] LABS: C DIFFICILE TOXIN A&B AMP PROB NEGATIVE (NEGATIVE)
[2018-03-11 10:21] LABS: ANION GAP 14.7 mmol/L (8-16); CALCIUM 9.1 mg/dL (8.4-10.2); CREATININE, SERUM 1.06 mg/dL (0.57-1.11); MAGNESIUM 1.6 MG/DL (1.3-2.1); PHOSPHORUS 2.4 MG/DL (2.3-4.7); POTASSIUM 3.7 mmol/L (3.5-5.1)
[2018-03-11] MEDS: MEROPENEM 500MG/ NS 50ML 50 ML IV SCH ×2 (10:31→17:14)
[2018-03-11 10:41] LABS: PROTHROMBIN TIME 14.1 seconds (11.9-14.5)
[2018-03-11 10:42] LABS: PARTIAL THROMBOPLASTIN TIME 33.1 seconds (23.8-35.5)
--- NOTE | 2018-03-11 13:40 | NUR ---
Visit made by the Spiritual Care Department Pastoral Visitor, Naty Morales. PV provided pastoral presence, prayer, hospitality, and supportive listening. Pastoral Visitor informed pt/family of the scope of [employer] [facility] and availability. ELIF HAUSER Society Reporter Spiritual Care Department O: [phone] Pager: [phone] ([phone] number calling from)
[2018-03-11] MEDS: CEFTRIAXONE SOD 2 GM/NS 100 ML 100 ML IV SCH (15:28)
--- NOTE | 2018-03-11 18:55 | NUR ---
Report given to oncoming shift. Isolation maintained. Call arriola within reach.
--- NOTE | 2018-03-11 19:35 | NUR ---
Patient received sitting up in bed. AAO x 3. Patient had no complaints of pain. No signs of respiratory distress. Bed locked and in lowest position. Bed rails up x 2. Bed alarm activated. Patient instructed to call for assistance when needed. Call light within reach.
[2018-03-11] MEDS: ATORVASTATIN 40 MG TAB PO SCH (21:11)
[2018-03-12] VITALS (8 sets, daily range): BP systolic 130–164; BP diastolic 59–97
[2018-03-12] MEDS: MEROPENEM 500MG/ NS 50ML 50 ML IV SCH ×3 (02:45→17:26)
[2018-03-12] MEDS: SODIUM BICARBONATE IV SCH (03:31)
[2018-03-12] MEDS: [UNRECOGNIZED DRUG - OTHER] IV SCH (03:31)
[2018-03-12] MEDS: POTASSIUM CHLORIDE IV SCH (03:31)
[2018-03-12 05:45] LABS: BASOPHILS % 0.7 % (0.0-1.0); EOSINOPHILS # (AUTO) 0.2 (0.0-0.4); EOSINOPHILS % 4.1 % (0.0-6.0); HEMATOCRIT 32.8 % (34.2-44.1); HEMOGLOBIN 10.8 g/dL (12.0-16.0); LYMPHOCYTES # (AUTO) 1.2 (1.0-3.2); LYMPHOCYTES % 21.2 % (18.0-39.1); MEAN CORPUSCULAR HEMOGLOBIN 30.6 pg (28-32); MEAN CORPUSCULAR HGB CONC 32.9 g/dL (31-35); MEAN CORPUSCULAR VOLUME 92.9 fL (81-99); MONOCYTES # (AUTO) 0.6 (0.2-0.8); MONOCYTES % 10.2 % (4.4-11.3); NEUTROPHILS # (AUTO) 3.6 (2.1-6.9); NEUTROPHILS % 63.4 % (38.7-80.0); PLATELET COUNT 231 x10e3/uL (140-360); RED BLOOD COUNT 3.53 x10e6/uL (3.6-5.1); RED CELL DISTRIBUTION WIDTH 13.2 % (11.7-14.4)
[2018-03-12 06:03] LABS: ANION GAP 15.1 mmol/L (8-16); CALCIUM 9.1 mg/dL (8.4-10.2); CREATININE, SERUM 0.98 mg/dL (0.57-1.11); POTASSIUM 4.1 mmol/L (3.5-5.1)
--- NOTE | 2018-03-12 07:10 | NUR ---
Shift report given to oncoming nurse. Patient in stable condition.
[2018-03-12] MEDS: INSULIN LISPRO 100 UNIT/1 ML 3ML VIAL SQ SCH ×4 (07:30→21:00)
--- NOTE | 2018-03-12 07:38 | Progress Note ---
DATE: March 12, 2018 RENAL PROGRESS NOTE SUBJECTIVE: Followed for acute kidney injury on possibly chronic kidney disease, stage 3. Patient's kidney function continues to improve. Creatinine is down to 0.98 today. Sodium is normal at 138 and the bicarb is 25. OBJECTIVE VITAL SIGNS: Have been noted. Blood pressure is 130/73, pulse 69, afebrile. LUNGS: Clear to auscultation bilaterally. CARDIOVASCULAR: S1 and S2. No rub. ABDOMEN: Soft and nontender. EXTREMITIES: No edema. LABS: Creatinine 0.98. Estimated GFR 55 mL per minute. Potassium 4.1. IMPRESSION AND PLAN 1. Acute kidney injury on chronic kidney disease, stage 3: Resolved acute kidney injury. Will discontinue intravenous fluids if not already done so. Will continue to monitor labs. 2. Hypertension, stable. 3. Metabolic acidosis, resolved: Discontinue intravenous fluids if they have not already been stopped. Job#: [id number] [place]
--- NOTE | 2018-03-12 07:41 | NUR ---
pt resting in bed. no c/o pain or s/s distress at this time. per radiology nurse, pt to go for procedure @1000 but may be pushed back dt plavix. pending update. pt NPO at this time and updated
[2018-03-12] MEDS: CLOPIDOGREL BISULFATE 75 MG TAB PO SCH (07:42)
[2018-03-12] MEDS: ASPIRIN 81 MG CHEW TAB PO SCH (07:42)
--- NOTE | 2018-03-12 09:58 | NUR ---
procedure cancelled, dr morales updated pt it will be setup outpt via [facility]. hold plavix. ID on unit, updating iv abx. discussed with pt possibility of doing outpt iv abx tx. pt aware, daughter present.
[2018-03-12] MEDS: FLUCONAZOLE 100 MG TAB PO SCH (10:47)
--- NOTE | 2018-03-12 18:26 | Diagnostic Imaging Report ---
EXAMINATION: CHEST XRAY LINE PLACEMENT INDICATION: PICC PLACED COMPARISON: 03/09/2018. FINDINGS: TUBES and LINES: Left PICC line has been placed with distal tip at the cavoatrial junction. LUNGS: Patchy density in the left the lung bases suggestive of subsegmental atelectasis. A 2.2 cm nodular density projected on the left lung base medially consistent with known pulmonary nodule/mass. PLEURA: No pleural effusion or pneumothorax. HEART AND MEDIASTINUM: The cardiomediastinal silhouette is unremarkable. Prominence of the pulmonary bony bilaterally suggestive of enlarged pulmonary arteries. BONES AND SOFT TISSUES: No acute osseous lesion. UPPER ABDOMEN: No free air under the diaphragm. IMPRESSION: Left PICC line has been placed with distal tip in adequate position at the cavoatrial junction. Signed by: Dr. Robert Rowan M.D. on 03/12/2018 6:23 PM
--- NOTE | 2018-03-12 19:27 | NUR ---
Patient received lying in bed. AAO x 3. No complaints of pain. No signs of respiratory distress. Bed locked and in lowest position. Bed rails up x 2. Patient instructed to call for assistance when needed. Call light within reach.
[2018-03-12] MEDS: ATORVASTATIN 40 MG TAB PO SCH (21:05)
[2018-03-13] VITALS: BP 154/67
[2018-03-13] MEDS: MEROPENEM 500MG/ NS 50ML 50 ML IV SCH ×2 (02:09→09:38)
--- NOTE | 2018-03-13 03:48 | NUR ---
Report given to Ankita (RN). Patient transferred to Room 284.
[2018-03-13 04:00] VITALS: BP 145/69
--- NOTE | 2018-03-13 04:00 | NUR ---
Pt transferred room 284 via stretcher. Pt A&Ox3. Skin warm and intact. vs stable. Assisted to bathroom with walker slow steady gait. Urine javier, clear, and without odor. Contact isolation, ESBL urine. Denies pain or SOB at this time. No acute distress noted. Oriented to room. Bed low and locked. Call arriola within reach. Will continue to monitor.
[2018-03-13 06:24] LABS: ANION GAP 14.8 mmol/L (8-16); BLOOD UREA NITROGEN 10 mg/dL (7-26); BUN/CREATININE RATIO 13 (6-25); CALCIUM 9.3 mg/dL (8.4-10.2); CARBON DIOXIDE 21 mmol/L (22-29); CHLORIDE 106 mmol/L (98-107); EST GLOMERULAR FILTRATION RATE > 60 ML/MIN (60-); GLUCOSE 154 mg/dL (74-118); POTASSIUM 3.8 mmol/L (3.5-5.1); SODIUM 138 mmol/L (136-145)
--- NOTE | 2018-03-13 06:24 | NUR ---
D/C IV 20g left FA, pt tolerated well. Flushed left upper arm PICC, double lumen with 10ml NS.
[2018-03-13] MEDS: INSULIN LISPRO 100 UNIT/1 ML 3ML VIAL SQ SCH ×2 (07:30→11:46)
[2018-03-13 08:00] VITALS: BP_SYST 113; BP_SYST 144; BP_DIAS 62; BP_DIAS 66
--- NOTE | 2018-03-13 08:14 | NUR ---
patient resting in bed, alert with no distress, call light in reach
[2018-03-13] MEDS: FLUCONAZOLE 100 MG TAB PO SCH (09:06)
[2018-03-13] MEDS: ASPIRIN 81 MG CHEW TAB PO SCH (09:06)
--- NOTE | 2018-03-13 09:10 | Progress Note ---
DATE: March 13, 2018 RENAL PROGRESS NOTE SUBJECTIVE: Followed for acute kidney injury. Creatinine has actually recovered close to a normal level. At baseline, may have CKD, stage 2. No nausea. No vomiting. No shortness of breath. Potassium is normal. Sodium is normal. Bicarb is slightly low at 21. OBJECTIVE VITAL SIGNS: Noted as follows: Blood pressure is 144/62, pulse 72 and afebrile. LUNGS: Clear to auscultation bilaterally. CARDIOVASCULAR: S1 and S2. No rub. ABDOMEN: Soft and nontender. EXTREMITIES: No edema. LABS: Potassium 3.8, BUN is 10 and creatinine is 0.8. IMPRESSION AND PLAN 1. Acute kidney injury, resolved. 2. Chronic kidney disease, stage 2, stable at baseline. 3. Metabolic acidosis: Resolved with bicarb drip. Bicarb is slightly low today. If trends downwards further, then will place on oral sodium bicarbonate. 4. Hyponatremia: Resolved after isotonic intravenous fluid hydration. Job#: [id number] [place]
[2018-03-13] MEDS ORDERED: SODIUM CHLORIDE 0.9% 250ML 250 ML ONE (09:11)
[2018-03-13 10:55] VITALS: BP 144/62
[2018-03-13 12:00] VITALS: BP 174/96
--- NOTE | 2018-03-13 12:01 | NUR ---
CM MET WITH PT REGARDING IV ABX CONSENTS SIGNED FOR [facility] FAXED ORDERS TO [facility] THEY ARE NOT ABLE TO SERVICE THIS PT WITH THIS [employer] PLAN [facility] [phone] [facility] TODAY BETWEEN 1:30 AND 2 TO TEACH PT AND DTR PT AWARE OF CHANGE IN COMPANIES IMM SIGNED AND ON CHART COPY TO PT
--- NOTE | 2018-03-13 14:20 | NUR ---
nurse from outpatient for IV antibiotic here to demonstrate to patient
--- NOTE | 2018-03-13 14:59 | Discharge Summary ---
FINAL DIAGNOSES 1. Acute kidney injury that has resolved. 2. Acute kidney injury due to dehydration that has resolved. 3. Chronic kidney disease. 4. Metabolic acidosis. 5. Left lower lobe 2.2 cm lung mass. 6. Ex-smoker. 7. Urinary tract infection with extended spectrum beta-lactamase Escherichia coli and streptococcus species. ADMISSION HISTORY AND HOSPITAL COURSE: Ms. Chávez is a 78-year-old female. She is a regular patient of Dr. Brown in [facility] came in with abdominal pain, nausea, vomiting for 1 week. The patient was severely dehydrated with acute kidney injury. IV hydration was done. Nephrology was consulted. There was an incidental finding of left lung mass in the adrenal nodule. Endocrinology was consulted for adrenal nodule and diabetes. The patient was scheduled for lung biopsy. However, the patient was on Plavix. I was told the patient will be having outpatient lung biopsy, which will be scheduled. Dr. Kuo cleared the patient for discharge. The patient received IV antibiotics as an outpatient. She will follow up with me in 1-2 weeks. She will continue on home medications. I will give her albuterol to be used as needed. Discharge medications reviewed and reconciled. RIVKA POLLACK MD Job#: [id number] [place]
--- NOTE | 2018-03-13 15:16 | NUR ---
patient discharged home, PICC line left upper arm is patent and intact, prescription given, educated to stop taking plavix until they done biopsy, patient verbalized understanding, she aware about f/ups appointments, prescription given, denies any pain, no SOB, her daughter here to pick patient, transported via wheelchair to [facility]
== END 2018-03-13 15:18 | disposition home or self-care (01) | DRG 683 ==
LOC: ER 21:34 → ERHOLD 03-09 04:12 → IMCU 03-09 05:55 → OBSVTOIN 03-10 11:48 → MED/SURG3 03-13 04:00
PROVIDERS: ADMIT Internal Medicine Pulmonary Disease; ATTEND Internal Medicine Pulmonary Disease
PROC: 02HV33Z Insertion of Infusion Device into Superior Vena Cava, Percutaneous Approach (ICD-10-PCS; principal; 2018-03-12)
DX: N17.9 Acute kidney failure, unspecified (principal); N39.0 Urinary tract infection, site not specified; E87.2 Acidosis; E87.1 Hypo-osmolality and hyponatremia; N12 Tubulo-interstitial nephritis, not specified as acute or chronic; B95.4 Other streptococcus as the cause of diseases classified elsewhere; B96.20 Unspecified Escherichia coli [E. coli] as the cause of diseases classified elsewhere; Z16.24 Resistance to multiple antibiotics; Z16.12 Extended spectrum beta lactamase (ESBL) resistance; D44.10 Neoplasm of uncertain behavior of unspecified adrenal gland; E11.65 Type 2 diabetes mellitus with hyperglycemia; R91.8 Other nonspecific abnormal finding of lung field; I87.2 Venous insufficiency (chronic) (peripheral); I12.9 Hypertensive chronic kidney disease with stage 1 through stage 4 chronic kidney disease, or unspecified chronic kidney disease; Z88.0 Allergy status to penicillin; E86.0 Dehydration; Z87.891 Personal history of nicotine dependence; N18.3 Chronic kidney disease, stage 3 (moderate); E86.1 Hypovolemia
CPT/HCPCS: 36415; 36569; 36600; 71045; 71250; 74176; 76770; 80048; 80053; 81001; 81025; 82270; 82530; 82570; 82805; 82948; 83036; 83605; 83735; 83835; 84100; 84156; 84300; 84439; 84443; 85025; 85610; 85730; 87040; 87045; 87086; 87186; 87400; 87493; 96374; 99284; G0378; J0696; J1956; J2270; J2405; J3480; J7030; J7050

== ENCOUNTER → 2018-03-19 | Outpatient (CLI) | payer MEDICARE ==
[~2018-03-19] MED LIST: ASPIRIN81 MG PO; ATORVASTATIN CA20 MG PO; CLOPIDOGREL75 MG PO; FENTANYL CITRATE/PF 100MCG/2 ML INJ ONE; FUROSEMIDE40 MG PO; GLIPIZIDE5 MG PO; LISINOPRIL10 MG PO; METFORMIN HCL500 MG PO; MIDAZOLAM HCL 2 MG/2 ML VIAL ONE; SODIUM CHLORIDE 0.9% 250ML 250 ML ONE; SODIUM CHLORIDE 0.9% 500ML 0 ML ONE
[2018-03-19 10:22] LABS: INR 0.95; PROTHROMBIN TIME 13.6 seconds (11.9-14.5)
[2018-03-19 10:23] LABS: PARTIAL THROMBOPLASTIN TIME 34.6 seconds (23.8-35.5)
--- NOTE | 2018-03-19 14:37 | Diagnostic Imaging Report ---
EXAMINATION: CHEST XRAY POST PROCEDURE INDICATION: Status post left lung biopsy. COMPARISON: Chest radiograph 03/12/[address] Chest 03/09/2018. FINDINGS: TUBES and LINES: Left-sided PICC terminating at the expected location of the lower SVC. LUNGS: No evidence of pneumonia or pulmonary edema. Opacity in the left medial lower lung, corresponding to known lung nodule. PLEURA: No pleural effusion or pneumothorax. No visible pneumothorax. HEART AND MEDIASTINUM: The cardiomediastinal silhouette is unremarkable. BONES AND SOFT TISSUES: No acute osseous abdomen. Partially seen fixation hardware involving the humeral head. UPPER ABDOMEN: No free air under the diaphragm. IMPRESSION: No radiographic evidence of pneumothorax. Opacity in the left medial lower lung, responding to known lung nodule. Signed by: Dr. Arnulfo Cortes MD on 03/19/2018 2:33 PM
--- NOTE | 2018-03-19 15:17 | Diagnostic Imaging Report ---
CT Guided Left Lower Lobe Pulmonary Nodule Biopsy Consent: The nature of the procedure, including its risks, benefits and alternatives was explained to the patient who understood and gave consent. Operators: Arnulfo Cortes MD ANESTHESIA: Intravenous conscious sedation was administered by radiology nursing. Continuous hemodynamic and respiratory monitoring was performed, including the use of pulse oximetry. Sedation start time: 1117 AM; Sedation end time: 1254 PM Total sedation time: 1 hour, 37 minutes RADIATION DOSE: 3346 mGy - cm Dose modulation, iterative reconstruction, and/or weight based adjustment of the mA/kV was utilized to reduce the radiation dose to as low as reasonably achievable. Medications: 10 cc of 1% subcutaneous lidocaine 75 mcg IV Fentanyl and 1.5 mg IV Versed per nursing administration records TECHNIQUE: The patient was placed in the prone position. Scans were obtained through the lower lungs which demonstrated a posterior left lower lobe pulmonary nodule, in close proximity to the diaphragm. A path to the lesion was identified. The skin of the left back was marked, prepped, draped and anesthetized with 1% lidocaine. With CT guidance, a 19-gauge needle was inserted percutaneously into the left lower lobe nodule. Aspirates were obtained with four 22-gauge needles and handed to the pathology team, however samples were not satisfactory for diagnosis. Given the proximity to the diaphragm and patient's respiratory motion, the introducer needle was displaced out of the nodule requiring several attempts at repositioning. At this point a trace pneumothorax developed, however the patient was clinically stable. With CT guidance, several core biopsy samples were obtained with a 20-gauge core biopsy device and provided to the Pathologist. Repeat CT demonstrated stable trace pneumothorax and trace perilesional hemorrhage. The introducer needle was partially withdrawn, pneumothorax aspirated and 1 cc of blood patch administered. Sterile bandage was placed and the patient was placed in supine positioning for monitoring. CONDITION/COMPLICATIONS: Clinically stable, trace pneumothorax and perilesional hemorrhage, stable on CT. IMPRESSION: Needle aspiration and core biopsy of left lower lobe pulmonary nodule as above. Technically challenging secondary to proximity to the diaphragm and respiratory motion. Trace pneumothorax, stable post procedurally. PLAN: Close monitoring in IR. Repeat CXR at 1 and 3 hours. Signed by: Dr. Arnulfo Cortes MD on 03/19/2018 3:14 PM
--- NOTE | 2018-03-19 16:16 | Diagnostic Imaging Report ---
EXAM: CT Chest WITHOUT contrast INDICATION: Hypotension post lung biopsy. COMPARISON: CT guided lung biopsy 03/19/2018, chest radiograph 03/19/2018, and CT Chest 03/09/2018. TECHNIQUE: Chest was scanned utilizing a multidetector helical scanner from the lung apex through the level of the adrenal glands without administration of IV contrast. Absence of intravenous contrast decreases sensitivity for detection of lymphadenopathy and vascular pathology. Coronal and sagittal reformations were obtained. Routine protocol was performed. IV CONTRAST: None COMPLICATIONS: None RADIATION DOSE: Total DLP: 541.9 mGy*cm Dose modulation, iterative reconstruction, and/or weight based adjustment of the mA/kV was utilized to reduce the radiation dose to as low as reasonably achievable. FINDINGS: LINES/ TUBES: Left-sided PICC terminates in the lower SVC. LUNGS AND AIRWAYS: Again noted is a 2.2 cm noncalcified solid nodule in the left lower lobe, abutting the posterior medial pleura. Trace perilesional hemorrhagic products post biopsy. Additional bilateral pulmonary nodules are unchanged and described on CT chest from 03/09/2018. The central airways are patent. Scattered atelectatic changes. Cystic changes are present in the left lower lobe on series 3, image 68. No evidence of consolidation or pulmonary edema. PLEURA: There is trace left-sided pneumothorax, not significantly changed from post biopsy CT from the same day. HEART AND MEDIASTINUM: Right thyroid lobe 1.3 cm hypodense nodule. No mediastinal, hilar or axillary lymphadenopathy. The heart is normal in size.. There is no pericardial effusion. There is calcification of the coronary arteries, consistent with atherosclerotic disease. UPPER ABDOMEN: Limited noncontrast views of the upper abdomen demonstrate multiple hepatic cysts, left sided renal cysts and lesions, right adrenal nodule, and left adrenal hyperplasia, better characterized on CT abdomen/pelvis on 03/09/2018. BONES/SOFT TISSUES: Partially visualized hardware in the right humeral head. Degenerative changes of the visualized spine without acute bony findings. No suspicious lytic or blastic lesions. IMPRESSION: Status post biopsy of left lower lobe pulmonary nodule with trace pneumothorax and trace perilesional hemorrhage, unchanged. Additional scattered pulmonary nodules as described above. Indeterminate 1.1 cm right adrenal nodule and indeterminate left renal lesions, better characterized on CT abdomen/pelvis on 03/09/2018, for which an MRI would be helpful for further evaluation. Signed by: Dr. Arnulfo Cortes MD on 03/19/2018 4:12 PM
== END ==
LOC: CT 09:04
PROVIDERS: ATTEND Internal Medicine
DX: R91.8 Other nonspecific abnormal finding of lung field (principal)
CPT/HCPCS: 32405; 36415; 71045; 71250; 77012; 85049; 85610; 85730; 88112; 88172; 88173; 88305; 93005; J2250; J7050; 99152; 99153; J7040